=== PATIENT | female | born 1975 | race Caucasian/White ===

== ENCOUNTER 2018-04-11 23:38 | Inpatient (IN) | payer MEDICARE, OTHER ==
[~2018-04-11] VITALS: Ht 167.6 cm; Wt 92.9 kg
[2018-04-11 23:45] VITALS: BP 142/73; PULSE 90; RESP 16; TEMP 99.8; O2SAT 98
[2018-04-12] VITALS (18 sets, daily range): BP systolic 97–137; BP diastolic 56–76; PULSE 70–104; RESP 16–18; TEMP 98.6–99.1; O2SAT 94–97
[2018-04-12] MEDS ORDERED: SODIUM CHLOR 0.9% 1000 ML INJ 1,000 ML IV ONE (00:30)
--- NOTE | 2018-04-12 00:35 | PD ---
HPI Chief Complaint: Skin Problem Time Seen by Provider: 00:22 Travel History International Travel<30 days: No Contact w/Intl Traveler<30days: No Traveled to known affect area: No History of Present Illness HPI The patient is a 42 year old female who presents to the [facility] emergency department with a history of right leg swelling, pain, discharge that began yesterday. 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 She reports that it began with a crack on her skin from her prosthetic device rubbing a month ago. She was started on prophylactic clindamycin and has been taking this for the last week. She reports that she recently moved to the area from [place] 2 weeks ago and has not established with a primary care physician. The patient has a history of diabetes mellitus. The patient reports that she has not been able to check her blood sugar for the last 2 weeks as she cannot find her Accu- Chek machine. She has been taking her insulin intermittently. She last administered Lantus insulin in the morning today, 24 units, and NovoLog insulin 12 units. She normally would take 12 units of NovoLog 3 times per day if she is eating. She reports that she did not administer it later in the day as she was not eating. The patient reports that she began to have chest pain this evening. She reports having associated shortness of breath. She denies any prior history of myocardial infarction, DVT, or PE. She reports that the chest pain is in the center of her chest and comes and goes. She denies having any nausea, vomiting, or diarrhea. She reports that she last moved her bowels earlier today. She denies having any blood in her stool or black or tarry stools. She reports having a fever with a T-max of 99.8. She reports having associated chills. Otherwise on review of systems, she denies having any cough or congestion, neck pain, abdominal pain, dysuria, urinary urgency, or neurologic symptoms. The patient reports that she has been experiencing urinary frequency and increased thirst. REPLACED BY [facility] Past Medical History Narrative Medical The patient's past medical history is significant for diabetes mellitus, Charcot ankle on the left, history of COPD, hypertension, hyperlipidemia, and anemia. Anemia: Yes Asthma: Yes Cardiovascular Problems: Yes (HTN) Chest Pain: Yes COPD: Yes Diabetes: Yes (Insulin) Patient Takes Glucophage: No Genitourinary: Yes (leaking protein) Hypertension: Yes Respiratory: Yes (COPD) Immunizations Current: Yes Tetanus Vaccination: < 5 Years Influenza Vaccination: Yes ?: Not LMP: 03/28/18 : 3 Para: 2 Miscarriage: 1 Dilation and Curettage (D&C): Yes Tubal Ligation: Yes Past Surgical History Narrative Surgical The patient's past surgical history is significant for a right below the knee amputation, gastric bypass, bilateral tubal ligation, eye surgery Abdominal Surgery: Yes (Gastric Bypass 2014) Section: Yes (x1) Eye Surgery: Yes (laser surgery for bleeding and scar tissue removal ) Social History Alcohol Use: No Tobacco Use: No Substance Use: No Allergies-Medications (Allergen,Severity, Reaction): Coded Allergies: hydrocodone (Verified Allergy, Severe, 04/11/18) vancomycin (Verified Allergy, Severe, Hives, 04/12/18) per pt she is able to take vancomycin if she is premedicated with benadryl Reported Meds & Prescriptions Reported Meds & Active Scripts Active Reported Novolog Inj (Insulin Aspart) 1,000 Unit/10 Ml Vial 12 Units SQ AC DINNER Novolog Inj (Insulin Aspart) 1,000 Unit/10 Ml Vial 12 Units SQ AC BREAKFAST Novolog Inj (Insulin Aspart) 1,000 Unit/10 Ml Vial 8 Units SQ AC LUNCH Lantus Solostar Pen Inj (Insulin Glargine) 300 Unit/3 Ml Pen 24 Units SQ AC BREAKFAST [employer] Pen [place] 31GX1/ 31G X 6 mm (Insulin Pen Needle) 31 Gauge X 1/4" Mis Atorvastatin (Atorvastatin Calcium) 80 Mg Tab 80 Mg PO DAILY Amlodipine (Amlodipine Besylate) 10 Mg Tab 10 Mg PO DAILY Lisinopril 5 Mg Tab 1 Tab PO DAILY Review of Systems Except as stated in HPI: all other systems reviewed are Neg General / Constitutional: Positive: Fever, Chills Eyes: No: Visual changes HENT: No: Headaches, Rhinorrhea, Congestion Cardiovascular: Positive: Chest Pain or Discomfort, Dyspnea on exertion Respiratory: No: Cough, Shortness of Breath Gastrointestinal: No: Nausea, Vomiting, Diarrhea, Abdominal Pain Genitourinary: No: Dysuria Musculoskeletal: Positive: Edema, Pain Skin: Positive Rash Neurologic: No: Weakness, Focal Abnormalities, Change in Mentation, Slurred Speech, Sensory Disturbance Psychiatric: No: Depression Endocrine: Positive: Polyuria, Polydipsia Hematologic/Lymphatic: No: Easy Bruising Physical Exam Narrative General: The patient is a well-developed well-nourished female in no acute distress. Head and Neck exam: Head is normocephalic atraumatic. Eyes: EOMI, pupils are equal round and reactive to light. Nose: Midline septum with pink mucous membranes Mouth: Dentition unremarkable. Moist mucus membranes. Posterior oropharynx is not erythematous. No tonsillar hypertrophy. Uvula midline. Airway patent. Neck: No palpable lymphadenopathy. No nuchal rigidity. No thyromegaly. Cardiovascular: Regular rate and rhythm without murmurs, gallops, or rubs. No pulse deficit to the extremities. Lungs: Clear to auscultation bilaterally. No wheezes, rhonchi, or rales. Abdomen: Soft, without tenderness to palpation in all 4 quadrants of the abdomen. No guarding, rebound, or rigidity. Normal bowel sounds are audible. No tenderness on palpation of McBurney's point. Negative Wei sign. Extremities: No clubbing, cyanosis, or edema. 2+ pulses in all 3 extremities. The patient has a right below the knee amputation. Along the stump the patient is noted to have erythema and edema covering the entire stump. The anterior aspect of the area of erythema is more swollen with an area of fluctuance noted. There is drainage from the wound that is a purulent bloody drainage. Wound culture was collected and will be sent to lab. Back: No spinous process tenderness to palpation. No costovertebral angle tenderness to palpation. Neurologic Exam: Cranial nerves 2-12 were intact on exam. Strength is 5/5 in all 4 extremities. No sensory deficits noted. Skin Exam: No other rash noted. Intact skin that is warm and dry. Data Data Last Documented VS Vital Signs Date Time Temp Pulse Resp B/P (MAP) Pulse Ox O2 Delivery O2 Flow Rate FiO2 04/12/18 01:30 98.7 70 16 115/65 (82) 97 Room Air Orders Orders Electrocardiogram (04/12/18 00:22) Complete Blood Count With Diff (04/12/18 00:22) Comprehensive Metabolic Panel (04/12/18 00:22) Creatine Kinase (Cpk) (04/12/18 00:22) Ckmb (Isoenzyme) Profile (04/12/18) Troponin I (04/12/18) B-Type Natriuretic Peptide (04/12/18) Prothrombin Time / Inr (Pt) (04/12/18) Act Partial Throm Time (Ptt) (04/12/18) Blood Culture (04/12/18) C-Reactive Protein (Crp) (04/12/18) Lipase (04/12/18) Urinalysis - C+S If Indicated (04/12/18) Westergren Sedimentation Rate (04/12/18) Magnesium (Mg) (04/12/18) Blood Gas Venous Ph (04/12/18) Beta Hydroxybutyrate (Acetone) (04/12/18) Chest, Single Ap (04/12/18) Iv Access Insert/Monitor (04/12/18) Ecg Monitoring (04/12/18) Oximetry (04/12/18) Ed Urine Pregnancytest Poc (04/12/18) Lactic Acid Sepsis Protocol (04/12/18) Sodium Chlor 0.9% 1000 Ml Inj (Ns 1000 M (04/12/18 00:30) Knee, Complete (4vws) (04/12/18 00:23) Acetaminophen (Tylenol) (04/12/18 01:30) Piperacil-Tazo 3.375 Gm Premix (Zosyn 3. (04/12/18:30) Sulfamet-Trimeth Ds 800-160 Mg (Bactrim (04/12/18:30) Admit Order (Ed Use Only) (04/12/18 02:20) Labs Laboratory Tests Test 04/12/18 01:00 White Blood Count 15.8 TH/MM3 Red Blood Count 4.22 MIL/MM3 Hemoglobin 11.1 GM/DL Hematocrit 34.0 % Mean Corpuscular Volume 80.7 FL Mean Corpuscular Hemoglobin 26.4 PG Mean Corpuscular Hemoglobin Concent 32.7 % Red Cell Distribution Width 13.9 % Platelet Count 486 TH/MM3 Mean Platelet Volume 8.8 FL Neutrophils (%) (Auto) 79.4 % Lymphocytes (%) (Auto) 9.3 % Monocytes (%) (Auto) 7.4 % Eosinophils (%) (Auto) 3.2 % Basophils (%) (Auto) 0.7 % Neutrophils # (Auto) 12.6 TH/MM3 Lymphocytes # (Auto) 1.5 TH/MM3 Monocytes # (Auto) 1.2 TH/MM3 Eosinophils # (Auto) 0.5 TH/MM3 Basophils # (Auto) 0.1 TH/MM3 CBC Comment DIFF FINAL Differential Comment Erythrocyte Sedimentation Rate GREATER THAN 140 mm/hr Prothrombin Time 9.7 SEC Prothromb Time International Ratio 1.0 RATIO Activated Partial Thromboplast Time 27.3 SEC Venous Blood pH 7.39 Blood Urea Nitrogen 13 MG/DL Creatinine 1.23 MG/DL Random Glucose 193 MG/DL Total Protein 7.2 GM/DL Albumin 2.1 GM/DL Calcium Level 8.2 MG/DL Magnesium Level 1.9 MG/DL Alkaline Phosphatase 168 U/L Aspartate Amino Transf (AST/SGOT) 13 U/L Alanine Aminotransferase (ALT/SGPT) 13 U/L Total Bilirubin 0.2 MG/DL Sodium Level 139 MEQ/L Potassium Level 3.9 MEQ/L Chloride Level 108 MEQ/L Carbon Dioxide Level 20.5 MEQ/L Anion Gap 11 MEQ/L Estimat Glomerular Filtration Rate 48 ML/MIN Lactic Acid Level 1.0 mmol/L Total Creatine Kinase 88 U/L Troponin I LESS THAN 0.02 NG/ML C-Reactive Protein 10.70 MG/DL B-Type Natriuretic Peptide 53 PG/ML Lipase 107 U/L B-Hydroxybutyrate 0.18 MMOL/L MDM Medical Decision Making Medical Screen Exam Complete: Yes Emergency Medical Condition: Yes Medical Record Reviewed: Yes Differential Diagnosis Cellulitis, versus cellulitis with abscess, versus osteomyelitis, versus sepsis Narrative Course During the course of the patient's emergency department visit, the patient's history, examination, and differential diagnosis were reviewed with the patient. The patient was placed on a cardiac nurse practitioner with oximetry and frequent blood pressure monitoring. The patient had IV access obtained and blood work sent for analysis. The patient had an EKG done on arrival that shows sinus rhythm heart rate of 81. No acute ST segment elevation, T waves are inverted in lead III. The patient was initially provided Tylenol for pain, Zosyn 3.375 g IV, Bactrim DS 1 p.o. 1 given her vancomycin allergy and a concern for MRSA. The patient was started on normal saline 1 L IV fluid bolus. The patient's laboratory studies were reviewed and remarkable for white count of 15.8, hemoglobin 11.1, platelets 486 with 79.4 neutrophils, sedimentation rate is elevated at greater than 140, VBG shows a normal pH, CMP is remarkable for chloride of 108, CO2 20.5, creatinine 1.23, glucose 193, calcium 8.2, AST 13 , alk phos 168. Initial set of cardiac enzymes are within normal limits, C- reactive protein is elevated at 10.7, lipase 107, BMP within normal limits at 53 , lactic acid within normal limits at 1. PT 9.7, PTT 27.3, beta hydroxybutyrate is 0.18 ruling out DKA, urinalysis shows small occult blood, greater than 500 protein, greater than 500 glucose, small leukocyte Estrace, 75 WBCs, moderate clumps, many bacteria, culture indicated. Radiology studies were reviewed and remarkable for Last Impressions Knee X-Ray 04/12/1822 Signed Impressions: CONCLUSION: Status post micje-gbj-wekw amputation without evidence of active bone loss or o bvious infection Chest X-Ray 04/12/1821 Signed Impressions: CONCLUSION: Negative examination. The patient's results were discussed with the patient, including the plan of care. I explained that further testing and/ or monitoring is indicated based on the patient's history, examination, and/ or laboratory findings. Therefore, I recommended admission for additional evaluation. The patient expressed understanding and was agreeable with this plan. The patient was admitted to the hospital in guarded condition and [facility]. Sepsis Criteria SIRS Criteria (2 or more): WBC > 85420, < 4000 or > 10% bands Physician Communication Physician Communication The patient's case including history, pertinent physical examination findings, and laboratory studies were discussed with Dr. Chamberlain. [facility] was [facility] Diagnosis Primary Impression: Amputation stump infection Additional Impression: UTI (urinary tract infection) Qualified Codes: N39.0 - Urinary tract infection, site not specified; R31.9 - Hematuria, unspecified Admitting Information Admitting Physician Requests: Admit Anne Marie Emanuel MD Apr 12, 2018 00:35
--- NOTE | 2018-04-12 01:19 | RADRPT ---
EXAM DATE: 04/12/2018 12:49 AM EDT AGE/SEX: 42 years / Female INDICATIONS: Short of breath, cough. CLINICAL DATA: This is the patient's initial encounter. Patient reports that signs and symptoms have been present for 1 day and indicates a pain score of 0/10. MEDICAL/SURGICAL HISTORY: . Diabetes. . lower right leg amputation. COMPARISON: No prior exams available for comparison. FINDINGS: A single AP view of the chest demonstrates the lungs to be symmetrically aerated without evidence of mass, infiltrate or effusion. The cardiomediastinal contours are unremarkable. Osseous structures a re intact. CONCLUSION: Negative examination. Electronically signed by: Rick Lebron MD 04/12/2018 1:18 AM EDT
--- NOTE | 2018-04-12 01:20 | RADRPT ---
EXAM DATE: 04/12/2018 12:50 AM EDT AGE/SEX: 42 years / Female INDICATIONS: Possible infection of lower right leg. CLINICAL DATA: This is the patient's initial encounter. Patient reports that signs and symptoms have been present for 1 day and indicates a pain score of 5/10. MEDICAL/SURGICAL HISTORY: . diabetes. . lower right leg amputation. COMPARISON: No prior exams available for comparison. FINDINGS: The patient's had a oyzxo-lwv-[id number] amputation. The residual tibia and fibula are unremarkable. No for eign objects identified. There is dense atherosclerotic disease. No active bone loss is identified. S oft tissues around the knee are unremarkable CONCLUSION: Status post nxxof-hrf-iirb amputation without evidence of active bone loss or obvious infection Electronically signed by: Rick Lebron MD 04/12/2018 1:19 AM EDT
[2018-04-12 01:29] LABS: AUTOMATED NEUTROPHIL # 12.6 TH/MM3 (1.8-7.7); BASOPHIL # 0.1 TH/MM3 (0-0.2); BASOPHIL % 0.7 % (0.0-2.0); EOSINOPHIL # 0.5 TH/MM3 (0-0.4); EOSINOPHIL % 3.2 % (0.0-4.0); HEMOGLOBIN 11.1 GM/DL (11.6-15.3); LYMPH % 9.3 % (9.0-44.0); LYMPHOCYTE # 1.5 TH/MM3 (1.0-4.8); MEAN CELL VOLUME 80.7 FL (80.0-100.0); MEAN CORPUSCULAR HEMOGLOBIN 26.4 PG (27.0-34.0); MEAN CORPUSCULAR HGB CONC 32.7 % (32.0-36.0); MEAN PLATELET VOLUME 8.8 FL (7.0-11.0); MONO % 7.4 % (0.0-8.0); MONOCYTE # 1.2 TH/MM3 (0-0.9); NEUT % 79.4 % (16.0-70.0); PLATELET COUNT 486 TH/MM3 (150-450); RED BLOOD COUNT 4.22 MIL/MM3 (4.00-5.30); RED CELL DISTRIBUTION WIDTH 13.9 % (11.6-17.2); WHITE BLOOD COUNT 15.8 TH/MM3 (4.0-11.0)
[2018-04-12] MEDS ORDERED: ACETAMINOPHEN 325 MG TAB PO ONE (01:30)
[2018-04-12] MEDS ORDERED: PIPERACIL-TAZO 3.375 GM PREMIX 50 ML IV ONE (01:30)
[2018-04-12] MEDS ORDERED: SULFAMETHOXAZOLE-TRIMETHOPRIM DS 800-160 MG TAB PO ONE (01:30)
[2018-04-12 01:49] LABS: ALBUMIN 2.1 GM/DL (3.4-5.0); ALKALINE PHOSPHATASE 168 U/L (45-117); ALT (GPT) 13 U/L (10-53); AST (GOT) 13 U/L (15-37); BICARBONATE 20.5 MEQ/L (21.0-32.0); BLOOD UREA NITROGEN 13 MG/DL (7-18); CALCIUM 8.2 MG/DL (8.5-10.1); CHLORIDE 108 MEQ/L (98-107); CREATININE 1.23 MG/DL (0.50-1.00); GLOMERULAR FILTRATION RATE 48 ML/MIN (>89); GLUCOSE,RANDOM 193 MG/DL (74-106); MAGNESIUM 1.9 MG/DL (1.5-2.5); SODIUM (NA) 139 MEQ/L (136-145); TOTAL BILIRUBIN ADULT 0.2 MG/DL (0.2-1.0); TOTAL PROTEIN 7.2 GM/DL (6.4-8.2); TROPONIN I LESS THAN 0.02 NG/ML (0.02-0.05)
[2018-04-12 01:50] LABS: PROTHROMBIN TIME - PATIENT 9.7 SEC (9.8-11.6)
[2018-04-12] MEDS ORDERED: LANTINJ SQ (02:40)
[2018-04-12] MEDS ORDERED: ATOR80TA45 PO (02:40)
[2018-04-12] MEDS ORDERED: [UNRECOGNIZED DRUG - CODE] (02:40)
[2018-04-12] MEDS ORDERED: LISI-519 PO (02:40)
[2018-04-12] MEDS ORDERED: NOVOLOGP2 SQ ×3 (02:40)
[2018-04-12] MEDS ORDERED: AMLO10TA2 PO (02:40)
--- NOTE | 2018-04-12 03:13 | HHI.HP ---
HPI Service [facility] Primary Care Physician Unknown Admission Diagnosis Right stump infection, cp r/o acs Diagnoses: Travel History International Travel<30 Days: No Contact w/Intl Traveler <30 Da: No Traveled to Known Affected Are: No History of Present Illness 42-year-old female with a past medical history significant for diabetes mellitus , hypertension, hyperlipidemia and COPD presents the emergency department with a 2 day history of a painful, swollen red and draining right stump. The patient is status post BKA and wears a prosthetic. She reports a crack in the rubber on her prosthetic that rubbed a hole in her skin. She saw her PCP approximately 10 days ago who gave her a prescription for clindamycin but stated that it was not infected at that time. The patient reports compliance with the clindamycin. She denies any fever/chills. Additionally, the patient complains of chest pain that started this evening. She endorses an associated shortness of breath. She states that the chest pain is substernal and intermittent. She denies any abdominal pain. No nausea/vomiting/diarrhea. No lateralizing signs/symptoms. Review of Systems Except as stated in HPI: all other systems reviewed are Neg Past Family Social History Past Medical History diabetes mellitus, hypertension, hyperlipidemia and COPD Past Surgical History Right BKA Gastric bypass Reported Medications Reported Meds & Active Scripts Active Reported Novolog Inj (Insulin Aspart) 1,000 Unit/10 Ml Vial 12 Units SQ AC DINNER Novolog Inj (Insulin Aspart) 1,000 Unit/10 Ml Vial 12 Units SQ AC BREAKFAST Novolog Inj (Insulin Aspart) 1,000 Unit/10 Ml Vial 8 Units SQ AC LUNCH Lantus Solostar Pen Inj (Insulin Glargine) 300 Unit/3 Ml Pen 24 Units SQ AC BREAKFAST [employer] Pen [place] 31GX1/ 31G X 6 mm (Insulin Pen Needle) 31 Gauge X 1/4" Mis Atorvastatin (Atorvastatin Calcium) 80 Mg Tab 80 Mg PO DAILY Amlodipine (Amlodipine Besylate) 10 Mg Tab 10 Mg PO DAILY Lisinopril 5 Mg Tab 1 Tab PO DAILY Allergies: Coded Allergies: hydrocodone (Verified Allergy, Severe, 04/11/18) vancomycin (Verified Allergy, Severe, Hives, 04/11/18) Family History Both parents with diabetes mellitus Social History Negative for alcohol, tobacco and illicit drugs Physical Exam Vital Signs Vital Signs Date Time Temp Pulse Resp B/P (MAP) Pulse Ox O2 Delivery O2 Flow Rate FiO2 04/11/18 23:45 99.8 90 16 142/73 (96) 98 Physical Exam GENERAL: Female, lying in bed SKIN: Erythematous and edematous right stump. The anterior aspect of the stump has fluctuance and purulent, bloody drainage. HEAD: Atraumatic. Normocephalic. No temporal or scalp tenderness. EYES: Pupils equal round and reactive. Extraocular motions intact. No scleral icterus. No injection or drainage. ENT: Nose without bleeding, purulent drainage or septal hematoma. Throat without erythema, tonsillar hypertrophy or exudate. Uvula midline. Airway patent. NECK: Trachea midline. No JVD or lymphadenopathy. Supple, nontender, no meningeal signs. CARDIOVASCULAR: Regular rate and rhythm without murmurs, gallops, or rubs. RESPIRATORY: Clear to auscultation. Breath sounds equal bilaterally. No wheezes , rales, or rhonchi. GASTROINTESTINAL: Abdomen soft, non-tender, nondistended. No hepato-splenomegaly , or palpable masses. No guarding. MUSCULOSKELETAL: Extremities without clubbing, cyanosis, or edema. No joint tenderness, effusion, or edema noted. No calf tenderness. NEUROLOGICAL: Awake and alert. Cranial nerves II through XII intact. Motor and sensory grossly within normal limits. Normal speech. Laboratory Laboratory Tests Test 04/12/18 01:00 04/12/18 02:30 White Blood Count 15.8 Red Blood Count 4.22 Hemoglobin 11.1 Hematocrit 34.0 Mean Corpuscular Volume 80.7 Mean Corpuscular Hemoglobin 26.4 Mean Corpuscular Hemoglobin Concent 32.7 Red Cell Distribution Width 13.9 Platelet Count 486 Mean Platelet Volume 8.8 Neutrophils (%) (Auto) 79.4 Lymphocytes (%) (Auto) 9.3 Monocytes (%) (Auto) 7.4 Eosinophils (%) (Auto) 3.2 Basophils (%) (Auto) 0.7 Neutrophils # (Auto) 12.6 Lymphocytes # (Auto) 1.5 Monocytes # (Auto) 1.2 Eosinophils # (Auto) 0.5 Basophils # (Auto) 0.1 CBC Comment DIFF FINAL Differential Comment Erythrocyte Sedimentation Rate GREATER THAN 140 Prothrombin Time 9.7 Prothromb Time International Ratio 1.0 Activated Partial Thromboplast Time 27.3 Venous Blood pH 7.39 Blood Urea Nitrogen 13 Creatinine 1.23 Random Glucose 193 Total Protein 7.2 Albumin 2.1 Calcium Level 8.2 Magnesium Level 1.9 Alkaline Phosphatase 168 Aspartate Amino Transf (AST/SGOT) 13 Alanine Aminotransferase (ALT/SGPT) 13 Total Bilirubin 0.2 Sodium Level 139 Potassium Level 3.9 Chloride Level 108 Carbon Dioxide Level 20.5 Anion Gap 11 Estimat Glomerular Filtration Rate 48 Lactic Acid Level 1.0 Total Creatine Kinase 88 Troponin I LESS THAN 0.02 C-Reactive Protein 10.70 B-Type Natriuretic Peptide 53 Lipase 107 B-Hydroxybutyrate 0.18 Date/Time Source Procedure Growth Status 04/12/18 01:10 Blood Peripheral Aerobic Blood Culture Pending Received 04/12/18 01:10 Blood Peripheral Anaerobic Blood Culture Pending Received 04/12/18 01:00 Wound Leg Gram Stain Pending Received 04/12/18 01:00 Wound Leg Wound Culture Pending Received Result Diagram: 04/12/18 01004/12/18 0100 Caprini VTE Risk Assessment Caprini VTE Risk Assessment: No/Low Risk (score <= 1) Caprini Risk Assessment Model Point Value = 1 Point Value = 2 Point Value = 3 Point Value = 5 Age 41-60 Minor surgery BMI > 25 kg/m2 Swollen legs Varicose veins or History of unexplained or recurrent spontaneous Oral contraceptives or hormone replacement Sepsis (< 1 month) Serious lung disease, including pneumonia (< 1 month) Abnormal pulmonary function Acute myocardial infarction Congestive heart failure (< 1 month) History of inflammatory bowel disease Medical patient at bed rest Age 61-74 Arthroscopic surgery Major open surgery (> 45 min) Laparoscopic surgery (> 45 min) Malignancy Confined to bed (> 72 hours) Immobilizing plaster cast Central venous access Age >= 75 History of VTE Family history of VTE Factor V Leiden Prothrombin [id number] Lupus anticoagulant Anticardiolipin antibodies Elevated serum homocysteine Heparin-induced thrombocytopenia Other congenital or acquired thrombophilia Stroke (< 1 month) Elective arthroplasty Hip, pelvis, or leg fracture Acute spinal cord injury (< 1 month) Prophylaxis Regimen Total Risk Factor Score Risk Level Prophylaxis Regimen 0-1 Low Early ambulation 2 Moderate Order ONE of the following: *Sequential Compression Device (SCD) *Heparin 5000 units SQ BID 3-4 Higher Order ONE of the following medications: *Heparin 5000 units SQ TID *Enoxaparin/Lovenox 40 mg SQ daily (WT < 150 kg, CrCl > 30 mL/min) *Enoxaparin/Lovenox 30 mg SQ daily (WT < 150 kg, CrCl > 10-29 mL/min) *Enoxaparin/Lovenox 30 mg SQ BID (WT < 150 kg, CrCl > 30 mL/min) AND/OR *Sequential Compression Device (SCD) 5 or more Highest Order ONE of the following medications: *Heparin 5000 units SQ TID (Preferred with Epidurals) *Enoxaparin/Lovenox 40 mg SQ daily (WT < 150 kg, CrCl > 30 mL/min) *Enoxaparin/Lovenox 30 mg SQ daily (WT < 150 kg, CrCl > 10-29 mL/min) *Enoxaparin/Lovenox 30 mg SQ BID (WT < 150 kg, CrCl > 30 mL/min) AND *Sequential Compression Device (SCD) Assessment and Plan Assessment and Plan Assessment/plan: 1. Cellulitis/ ? Osteomyelitis Vancomycin/Zosyn Wound cultures pending Blood cultures pending ESR elevated, MRI pending Infectious disease consulted, appreciate recommendations 2. Diabetes mellitus Holding long-acting insulin as patient n.p.o. Sliding-scale insulin Monitor blood glucose 3. Hypertension/hyperlipidemia Continue home medications FEN N.p.o. NS at 100 cc/hour Electrolytes: Monitor and replete as needed Physician Certification 2 Midnight Certification Type: Admission for Inpatient Services Order for Inpatient Services The services are ordered in accordance with Medicare regulations or non- Medicare payer requirements, as applicable. In the case of services not specified as inpatient-only, they are appropriately provided as inpatient services in accordance with the 2-midnight benchmark. Estimated LOS (days): 2 2 days is the estimated time the patient will need to remain in the hospital, assuming treatment plan goals are met and no additional complications. Post-Hospital Plan: Not yet determined Lorraine Chamberlain MD Apr 12, 2018 03:13
[2018-04-12 03:14] LABS: BACTERIA, URINE MANY /hpf; BILIRUBIN, URINE NEG (NEG); BLOOD, URINE SMALL (NEG); GLUCOSE,URINE >=500 mg/dL (NEG); HYALINE CAST, URINE 7 /lpf (RARE); KETONE, URINE NEG (NEG); NITRITE,URINE NEG (NEG); SQUAMOUS EPITHELIAL CELL URINE 4 /hpf (0-5); URINE COLOR YELLOW (YELLW/STRAW); URINE LEUKOCYTE ESTERASE SMALL (NEG); WHITE BLOOD CELL CLUMPS MOD
[2018-04-12] MEDS ORDERED: GLUCAGON 1 MG/ML VIAL OTHER PRN (03:15)
[2018-04-12] MEDS ORDERED: BISACODYL 10 MG SUPP RECTAL PRN (03:15)
[2018-04-12] MEDS ORDERED: SENNOSIDES 8.6 MG TAB PO PRN (03:15)
[2018-04-12] MEDS ORDERED: Vancomycin Consult Pharmacy 1 EA OTHER SCH (03:15)
[2018-04-12] MEDS ORDERED: MAGNESIUM HYDROXIDE SUSP 30 ML CUP PO PRN (03:15)
[2018-04-12] MEDS ORDERED: LACTULOSE SYRUP 20 GM/30 ML CUP PO PRN (03:15)
[2018-04-12] MEDS ORDERED: DEXTROSE 50% IN WATER 50 ML VIAL(D50) IV PUSH PRN (03:15)
[2018-04-12] MEDS ORDERED: NALOXONE HCL 0.4 MG/ML AMP IV PUSH PRN (03:15)
[2018-04-12] MEDS ORDERED: diphenhydrAMINE HCL 50 MG/ML VIAL IV PUSH PRN (03:15)
[2018-04-12] MEDS: SODIUM CHLOR 0.9% 1000 ML INJ 1,000 ML IV SCH ×2 (04:31→11:31)
[2018-04-12] MEDS: diphenhydrAMINE HCL 50 MG/ML VIAL IV PUSH SCH ×2 (04:33→15:31)
[2018-04-12] MEDS: SODIUM CHLORIDE 0.9% FLUSH 10 ML FLUSH IV FLUSH PRN (04:33)
[2018-04-12] MEDS: VANCOMYCIN INJ 1,500 MG in SODIUM CHLORID 0.9% 500 ML INJ 500 ML IV SCH ×2 (04:33→15:31)
[2018-04-12] MEDS: ONDANSETRON ODT 4 MG TAB PO PRN (04:33)
[2018-04-12] MEDS: MORPHINE SULFATE 4 MG/ML INJ IV PRN ×3 (04:34→13:01)
[2018-04-12] MEDS: INSULIN ASPART SUPPLEMENTAL SCALE SQ SCH ×4 (08:00→21:00)
[2018-04-12] MEDS: PIPERACIL-TAZO 3.375 GM PREMIX 50 ML IV SCH ×3 (08:39→20:49)
[2018-04-12] MEDS: ATORVASTATIN 80 MG TAB PO SCH (08:39)
[2018-04-12] MEDS: LISINOPRIL 5 MG TAB PO SCH (08:39)
[2018-04-12] MEDS: DOCUSATE SODIUM 50 MG/SENNA 8.6 MG TAB PO SCH ×2 (08:39→20:52)
[2018-04-12] MEDS: SODIUM CHLORIDE 0.9% FLUSH 10 ML FLUSH IV FLUSH SCH ×2 (08:39→20:52)
[2018-04-12 09:21] LABS: TROPONIN I LESS THAN 0.02 NG/ML (0.02-0.05)
--- NOTE | 2018-04-12 10:45 | PD.ID.CON ---
History of Present Illness Service ID Consult Requested By Reason for Consult Evaluation and Mment of Right BKA stump infection possible osteomyelitis of stump. Primary Care Physician Unknown Diagnoses: History of Present Illness is a 42 y/o CF with PMHx of DM with neuropathy, Charcots joint of Left foot. She reports prior h/o toe and leg infection needing IV antibiotics and progressing despite that needing Right BKA. She reports she is from [facility] and had surgeries locally in [place]. She also reports h/o hypertension, hyperlipidemia and COPD presents the emergency department with a 2 day history of a painful, swollen red and draining right stump. The patient is status post BKA and wears a prosthetic. She reports a crack in the rubber on her prosthetic that rubbed a hole in her skin. She saw her PCP approximately 10 days ago who gave her a prescription for clindamycin but stated that it was not infected at that time. The patient reports compliance with the clindamycin. She denies any fever/chills. She reports approx 3 days prior to admission she started having increasing redness and swelling at amputation stump site. She decided to present to the hospital. ID consulted for stump site cellulitis. Review of Systems ROS Limitations: Poor Historian Constitutional: DENIES: Diaphoretic episodes, Fatigue, Fever, Weight gain, Weight loss, Chills, Dizziness, Change in appetite, Night Sweats Endocrine: DENIES: Abnorml menstrual pattern, Heat/cold intolerance, Polydipsia , Polyuria, Polyphagia Eyes: DENIES: Blurred vision, Diplopia, Eye inflammation, Eye pain, Vision loss , Photosensitivity, Double Vision Ears, nose, mouth, throat: DENIES: Tinnitus, Hearing loss, Vertigo, Nasal discharge, Oral lesions, Throat pain, Hoarseness, Ear Pain, Running Nose, Epistaxis, Sinus Pain, Toothache, Odynophagia Respiratory: DENIES: Apneas, Cough, Snoring, Wheezing, Hemoptysis, Sputum production, Shortness of breath Cardiovascular: DENIES: Chest pain, Palpitations, Syncope, Dyspnea on Exertion , PND, Lower Extremity Edema, Orthopnea, Claudication Gastrointestinal: DENIES: Abdominal pain, Black stools, Bloody stools, Constipation, Diarrhea, Nausea, Vomiting, Difficulty Swallowing, Anorexia Genitourinary: DENIES: Abnormal vaginal bleeding, Dysmenorrhea, Dyspareunia, Sexual dysfunction, Urinary frequency, Urinary incontinence, Urgency, Hematuria , Dysuria, Nocturia, Vaginal discharge Musculoskeletal: DENIES: Joint pain, Muscle aches, Stiffness, Joint Swelling, Back pain, Neck pain Integumentary: COMPLAINS OF: Abnormal pigmentation, DENIES: Pruritus, Rash, Nail changes, Breast masses, Breast skin changes, Nipple discharge Hematologic/lymphatic: DENIES: Bruising, Lymphadenopathy Immunologic/allergic: DENIES: Eczema, Urticaria Neurologic: DENIES: Abnormal gait, Headache, Localized weakness, Paresthesias, Seizures, Speech Problems, Tremor, Poor Balance Psychiatric: DENIES: Anxiety, Confusion, Mood changes, Depression, Hallucinations, Agitation, Suicidal Ideation, Homicidal Ideation, Delusions Except as stated in HPI: all other systems reviewed are Neg Past Family Social History Allergies: Coded Allergies: hydrocodone (Verified Allergy, Severe, 04/11/18) vancomycin (Verified Allergy, Severe, Hives, 04/12/18) per pt she is able to take vancomycin if she is premedicated with benadryl Past Medical History Diabetes mellitus, hypertension, hyperlipidemia COPD Past Surgical History Right BKA Gastric bypass Reported Medications Reported Meds & Active Scripts Active Reported Novolog Inj (Insulin Aspart) 1,000 Unit/10 Ml Vial 12 Units SQ AC DINNER Novolog Inj (Insulin Aspart) 1,000 Unit/10 Ml Vial 12 Units SQ AC BREAKFAST Novolog Inj (Insulin Aspart) 1,000 Unit/10 Ml Vial 8 Units SQ AC LUNCH Lantus Solostar Pen Inj (Insulin Glargine) 300 Unit/3 Ml Pen 24 Units SQ AC BREAKFAST [employer] Pen [place] 31GX1/ 31G X 6 mm (Insulin Pen Needle) 31 Gauge X 1/4" Mis Atorvastatin (Atorvastatin Calcium) 80 Mg Tab 80 Mg PO DAILY Amlodipine (Amlodipine Besylate) 10 Mg Tab 10 Mg PO DAILY Lisinopril 5 Mg Tab 1 Tab PO DAILY Active Ordered Medications Current Medications Medications (Trade) Dose Ordered Sig/Maria D Route Start Time Stop Time Status Last Admin Piperacillin Sod/ Tazobactam Sod 50 ml @ 100 mls/hr Q6H IV 04/12/18 08:00 04/12/18 08:39 Pharmacy Profile Note 0 ml @ 0 mls/hr UNSCH OTHER 04/12/18 03:15 Vancomycin HCl 1500 mg/Sodium Chloride 500 ml @ 250 mls/hr Q12H IV 04/12/18 04:00 04/12/18 04:33 (Morphine Inj) 2 mg Q4H PRN IV 04/12/18 03:30 04/12/18 08:53 Sodium Chloride 1,000 ml @ 100 mls/hr Q10H IV 04/12/18 03:02 04/12/18 04:31 (NS Flush) 2 ml UNSCH PRN IV FLUSH 04/12/18 03:15 04/12/18 04:33 (NS Flush) 2 ml BID IV FLUSH 04/12/18 09:00 (Tylenol) 650 mg Q4H PRN PO 04/12/18 03:15 (Zofran Odt) 4 mg Q6H PRN PO 04/12/18 03:30 04/12/18 04:33 (Narcan Inj) 0.4 mg UNSCH PRN IV PUSH 04/12/18 03:15 (Dilcia-Colace) 1 tab BID PO 04/12/18 09:00 04/12/18 08:39 (Milk Of Magnesia Liq) 30 ml Q12H PRN PO 04/12/18 03:15 (Senokot) 17.2 mg Q12H PRN PO 04/12/18 03:15 (Dulcolax Supp) 10 mg DAILY PRN RECTAL 04/12/18 03:15 (Lactulose Liq) 30 ml DAILY PRN PO 04/12/18 03:15 (D50w (Vial) Inj) 50 ml UNSCH PRN IV PUSH 04/12/18 03:15 (Glucagon Inj) 1 mg UNSCH PRN OTHER 04/12/18 03:15 (NovoLOG SUPPLEMENTAL SCALE) 1 ACHS SLIDING SCALE SQ 04/12/18 08:00 (Norvasc) 10 mg DAILY PO 04/12/18 09:00 04/12/18 08:39 (Lipitor) 80 mg DAILY PO 04/12/18 09:00 04/12/18 08:39 (Prinivil) 5 mg DAILY PO 04/12/18 09:00 04/12/18 08:39 ([facility] Ordered Lab Info) SPECIFIC LAB TO BE AJAY... ONCE ONCE .XX 04/14/18 03:45 04/14/18 03:46 (Benadryl Inj) 25 mg Q12H IV PUSH 04/12/18 04:00 04/12/18 04:33 Family History Both parents with diabetes mellitus Social History Negative for alcohol, tobacco and illicit drugs. Has 2 minor children in room. 2 other 16 yr old kids with in the area. Physical Exam Vital Signs Vital Signs Date Time Temp Pulse Resp B/P (MAP) Pulse Ox O2 Delivery O2 Flow Rate FiO2 04/12/18 08:59 16 04/12/18 08:00 99.1 79 16 132/76 (94) 95 04/12/18 08:00 76 04/12/18 05:20 98.9 80 16 137/74 (95) 97 04/12/18 04:35 72 16 111/64 (80) 98 04/12/18 01:30 98.7 70 16 115/65 (82) 97 Room Air 04/11/18 23:45 99.8 90 16 142/73 (96) 98 Physical Exam GENERAL: Obese, well-developed patient, in no apparent distress. SKIN: No rashes, ecchymoses or lesions. Cool and dry. HEAD: Atraumatic. Normocephalic. No temporal or scalp tenderness. EYES: Pupils equal round and reactive. Extraocular motions intact. No scleral icterus. No injection or drainage. ENT: Nose without bleeding, purulent drainage or septal hematoma. Throat without erythema, tonsillar hypertrophy or exudate. Uvula midline. Airway patent. NECK: Trachea midline. Supple, nontender, no meningeal signs. CARDIOVASCULAR: RHS audible. RESPIRATORY: Clear to auscultation. Breath sounds equal bilaterally. No wheezes , rales, or rhonchi. GASTROINTESTINAL: Abdomen soft, non-tender, nondistended. MUSCULOSKELETAL: rt BKA stump site with significant erythema, swelling, induration and tenderness. Sanguinous discharge from the stump and sheets covered in discharge. Left foot with Charcot like changes. NEUROLOGICAL: Awake and alert. Non focal Psych cooperative IV line sites with no e.o infection Laboratory Laboratory Tests Test 04/12/18 01:00 04/12/18 02:30 04/12/18 08:43 White Blood Count 15.8 Red Blood Count 4.22 Hemoglobin 11.1 Hematocrit 34.0 Mean Corpuscular Volume 80.7 Mean Corpuscular Hemoglobin 26.4 Mean Corpuscular Hemoglobin Concent 32.7 Red Cell Distribution Width 13.9 Platelet Count 486 Mean Platelet Volume 8.8 Neutrophils (%) (Auto) 79.4 Lymphocytes (%) (Auto) 9.3 Monocytes (%) (Auto) 7.4 Eosinophils (%) (Auto) 3.2 Basophils (%) (Auto) 0.7 Neutrophils # (Auto) 12.6 Lymphocytes # (Auto) 1.5 Monocytes # (Auto) 1.2 Eosinophils # (Auto) 0.5 Basophils # (Auto) 0.1 CBC Comment DIFF FINAL Differential Comment Erythrocyte Sedimentation Rate GREATER THAN 140 Prothrombin Time 9.7 Prothromb Time International Ratio 1.0 Activated Partial Thromboplast Time 27.3 Venous Blood pH 7.39 Blood Urea Nitrogen 13 Creatinine 1.23 Random Glucose 193 Total Protein 7.2 Albumin 2.1 Calcium Level 8.2 Magnesium Level 1.9 Alkaline Phosphatase 168 Aspartate Amino Transf (AST/SGOT) 13 Alanine Aminotransferase (ALT/SGPT) 13 Total Bilirubin 0.2 Sodium Level 139 Potassium Level 3.9 Chloride Level 108 Carbon Dioxide Level 20.5 Anion Gap 11 Estimat Glomerular Filtration Rate 48 Lactic Acid Level 1.0 Total Creatine Kinase 88 56 Troponin I LESS THAN 0.02 LESS THAN 0.02 C-Reactive Protein 10.70 B-Type Natriuretic Peptide 53 Lipase 107 B-Hydroxybutyrate 0.18 Urine Color YELLOW Urine Turbidity CLOUDY Urine pH 5.0 Urine Specific [place] 1.011 Urine Protein >=500 Urine Glucose (UA) >=500 Urine Ketones NEG Urine Occult Blood SMALL Urine Nitrite NEG Urine Bilirubin NEG Urine Urobilinogen LESS THAN 2 Urine Leukocyte Esterase SMALL Urine RBC 2 Urine WBC 75 Urine WBC Clumps MOD Urine Squamous Epithelial Cells 4 Urine Bacteria MANY Urine Hyaline Casts 7 Microscopic Urinalysis Comment CULTURE INDICATED Date/Time Source Procedure Growth Status 04/12/18 01:10 Blood Peripheral Aerobic Blood Culture Pending Received 04/12/18 01:10 Blood Peripheral Anaerobic Blood Culture Pending Received 04/12/18 02:30 Urine Random Urine Urine Culture Pending Received 04/12/18 01:00 Wound Leg Gram Stain - Final Resulted 04/12/18 01:00 Wound Leg Wound Culture Pending Resulted Result Diagram: 04/12/18 0100 04/12/18 0100 Imaging Last Impressions Knee X-Ray 04/12/18 0023 Signed Impressions: CONCLUSION: Status post [id number] amputation without evidence of active bone loss or o bvious infection Chest X-Ray 04/12/18 0022 Signed Impressions: CONCLUSION: Negative examination. Assessment and Plan Assessment and Plan Right BKA amputation site infection with possible abscess, underlying osteomyelitis. DM with Neuropathy Left foot with Charcot changes. Acute renal failure: ? acute on chronic. Elevated CRP and ESR. Recs Has tolerated Vanco overnight. Continue Vanco IV for now. Target 15-20. Continue Zosyn IV dw : needs surgery consult possible vascular consult. Follow cultures. Follow clinically. Ivelisse Narayan MD Apr 12, 2018 10:45
--- NOTE | 2018-04-12 13:00 | PD.VS.CON ---
History of Present Illness Chief Complaint: RIGHT BKA infection Consult Requested by: Medical service History of Present Illness 42 yo female with history of DM and R BKA done about a year ago who was wearing a prosthesis and developed a wound infection. Had this very same thing happen a few months ago. No fevers. Past/Family/Social History Past Medical History DM HTN XOL ? COPD Past Surgical History R BKA without delayed healing gastric bypass Social History NC Family History NC Home Medications Reported Medications Insulin Aspart Inj (Novolog Inj) 1,000 Unit/10 Ml Vial, 12 UNITS SQ AC DINNER for Blood Sugar Management, #10 ML 0 Refills 04/12/18 Insulin Aspart Inj (Novolog Inj) 1,000 Unit/10 Ml Vial, 12 UNITS SQ AC BREAKFAST for Blood Sugar Management, #10 ML 0 Refills 04/12/18 Insulin Aspart Inj (Novolog Inj) 1,000 Unit/10 Ml Vial, 8 UNITS SQ AC LUNCH for Blood Sugar Management, #10 ML 0 Refills 04/12/18 Insulin Glargine Inj (Lantus Solostar Pen Inj) 300 Unit/3 Ml Pen, 24 UNITS SQ AC BREAKFAST 04/12/18 Insulin Pen Needle ([employer] Pen [place] 31GX1/ 31G X 6 mm) 31 Gauge X 1/4" Mis 04/12/18 Atorvastatin (Atorvastatin) 80 Mg Tab, 80 MG PO DAILY 04/12/18 Amlodipine (Amlodipine) 10 Mg Tab, 10 MG PO DAILY 04/12/18 Lisinopril (Lisinopril) 5 Mg Tab, 1 TAB PO DAILY 04/12/18 Coded Allergies: hydrocodone (Verified Allergy, Severe, 04/11/18) vancomycin (Verified Allergy, Severe, Hives, 04/12/18) per pt she is able to take vancomycin if she is premedicated with benadryl Review of Systems Constitutional: COMPLAINS OF: Fatigue Cardiovascular: DENIES: Chest pain, Palpitations, Syncope, Dyspnea on Exertion , PND, Lower Extremity Edema, Orthopnea, Claudication Physical Exam Vitals/I&O Date Time Temp Pulse Resp B/P (MAP) Pulse Ox O2 Delivery O2 Flow Rate FiO2 04/12/18 12:00 99.1 90 16 123/70 (87) 94 04/12/18 12:00 90 04/12/18 11:00 104 04/12/18 10:00 86 04/12/18 09:00 82 04/12/18 08:59 16 04/12/18 08:00 99.1 79 16 132/76 (94) 95 04/12/18 08:00 76 04/12/18 07:00 82 04/12/18 05:20 98.9 80 16 137/74 (95) 97 04/12/18 04:35 72 16 111/64 (80) 98 04/12/18 01:30 98.7 70 16 115/65 (82) 97 Room Air 04/11/18 23:45 99.8 90 16 142/73 (96) 98 04/12/18 04/12/18 04/12/18 07:00 15:00 23:00 Intake Total 1050 ml Balance 1050 ml Neuro: slightly somnolent but alert HEENT: NC/AT, anicteric sclera Neck: no JVD Heart: reg rate, no M Lungs: clear B Vascular: no palpable popliteal pulse Extremities: R BKA with open wound and myonecrosis, surrounding erythema Laboratory Tests Test 04/12/18 01:00 04/12/18 02:30 04/12/18 08:43 White Blood Count 15.8 Red Blood Count 4.22 Hemoglobin 11.1 Hematocrit 34.0 Mean Corpuscular Volume 80.7 Mean Corpuscular Hemoglobin 26.4 Mean Corpuscular Hemoglobin Concent 32.7 Red Cell Distribution Width 13.9 Platelet Count 486 Mean Platelet Volume 8.8 Neutrophils (%) (Auto) 79.4 Lymphocytes (%) (Auto) 9.3 Monocytes (%) (Auto) 7.4 Eosinophils (%) (Auto) 3.2 Basophils (%) (Auto) 0.7 Neutrophils # (Auto) 12.6 Lymphocytes # (Auto) 1.5 Monocytes # (Auto) 1.2 Eosinophils # (Auto) 0.5 Basophils # (Auto) 0.1 CBC Comment DIFF FINAL Differential Comment Erythrocyte Sedimentation Rate GREATER THAN 140 Prothrombin Time 9.7 Prothromb Time International Ratio 1.0 Activated Partial Thromboplast Time 27.3 Venous Blood pH 7.39 Blood Urea Nitrogen 13 Creatinine 1.23 Random Glucose 193 Total Protein 7.2 Albumin 2.1 Calcium Level 8.2 Magnesium Level 1.9 Alkaline Phosphatase 168 Aspartate Amino Transf (AST/SGOT) 13 Alanine Aminotransferase (ALT/SGPT) 13 Total Bilirubin 0.2 Sodium Level 139 Potassium Level 3.9 Chloride Level 108 Carbon Dioxide Level 20.5 Anion Gap 11 Estimat Glomerular Filtration Rate 48 Lactic Acid Level 1.0 Total Creatine Kinase 88 56 Troponin I LESS THAN 0.02 LESS THAN 0.02 C-Reactive Protein 10.70 B-Type Natriuretic Peptide 53 Lipase 107 B-Hydroxybutyrate 0.18 Urine Color YELLOW Urine Turbidity CLOUDY Urine pH 5.0 Urine Specific [place] 1.011 Urine Protein >=500 Urine Glucose (UA) >=500 Urine Ketones NEG Urine Occult Blood SMALL Urine Nitrite NEG Urine Bilirubin NEG Urine Urobilinogen LESS THAN 2 Urine Leukocyte Esterase SMALL Urine RBC 2 Urine WBC 75 Urine WBC Clumps MOD Urine Squamous Epithelial Cells 4 Urine Bacteria MANY Urine Hyaline Casts 7 Microscopic Urinalysis Comment CULTURE INDICATED Date/Time Source Procedure Growth Status 04/12/18 01:10 Blood Peripheral Aerobic Blood Culture Pending Received 04/12/18 01:10 Blood Peripheral Anaerobic Blood Culture Pending Received 04/12/18 02:30 Urine Random Urine Urine Culture Pending Received 04/12/18 01:00 Wound Leg Gram Stain - Final Resulted 04/12/18 01:00 Wound Leg Wound Culture Pending Resulted Last 48 hours Impressions Knee X-Ray 04/12/18 0023 Signed Impressions: CONCLUSION: Status post [id number] amputation without evidence of active bone loss or o bvious infection Chest X-Ray 04/12/18 0022 Signed Impressions: CONCLUSION: Negative examination. Assessment and Plan Plan R BKA cellulitis and abscess, partially drained Plain XRay does not look like it involves bone 1. To OR tomorrow (Th) for drainage, irrigation and debridement 2. Will consult wound care tomorrow after surgical debridement 3. Discussed with patient 4. Would continue antibiotics and check A1c Nathanael Jean-Baptiste MD FACS [employer]PV[employer] marine pipe welder [facility] - [facility] at [facility] [phone] Nathanael Jean-Baptiste MD Apr 12, 2018 13:00
--- NOTE | 2018-04-12 13:42 | EKG ---
Date Performed: 04/12/2018 Time Performed: 07:51:52 PTAGE: 42 years EKG: Sinus rhythm Normal ECG PREVIOUS TRACING : 04/12/2018 02.02 DOCTOR: Rick Rendon Interpretating Date/Time 04/12/2018 13:40:36
--- NOTE | 2018-04-12 13:53 | EKG ---
Date Performed: 04/12/2018 Time Performed: 02:02:01 PTAGE: 42 years EKG: Sinus rhythm NORMAL ECG NO PREVIOUS TRACING DOCTOR: Rick Rendon Interpretating Date/Time 04/12/2018 13:51:04
[2018-04-12 13:57] LABS: TROPONIN I LESS THAN 0.02 NG/ML (0.02-0.05)
[2018-04-12] MEDS: oxyCODONE/ACETAMINOPHEN 5 MG/325 MG TAB PO PRN (15:31)
[2018-04-12 17:21] LABS: HEMOGLOBIN A1C 9.3 % (4.3-6.0)
[2018-04-12] MEDS ORDERED: GADODIAMIDE PF 287 MG/ML 20 ML VIAL (for RAD MRI) IVCONTRAST ONE (18:21)
--- NOTE | 2018-04-12 18:42 | RADRPT ---
EXAM DATE: 04/12/2018 6:31 PM EDT AGE/SEX: 42 years / Female INDICATIONS: Infected stump. CLINICAL DATA: This is the patient's subsequent encounter. Patient reports that signs and symptoms h ave been present for 4 - 6 days and indicates a pain score of 2/10. MEDICAL/SURGICAL HISTORY: Diabetes. Hypertension. Chronic obstructive pulmonary disease. Tessa kashmir bypass. Tubal ligation. Right leg amputation. COMPARISON: [facility] [place], KNEE RIGHT COMPLETE ([id number]), 04/12/2018. . TECHNIQUE: Multiplanar, multisequence MRI examination was performed without and with ml Omniscan (ga dodiamide) contrast as single exam dose. FINDINGS: Bones: Below the knee amputation. Marrow signal intensity of the remaining tibia is normal. There are cystic lucencies within the marrow of the femur. Muscle: Normal signal without evidence of edema, hemorrhage or atrophy. Soft Tissues: Diffuse soft tissue swelling of the distal leg and stump. There is enhancement as well Other: The neurovascular structures are intact. CONCLUSION: 1. Cellulitic changes of the soft tissues/stump but no osteomyelitis. 2. Cystic changes of the marrow of the distal femur of uncertain etiology. Electronically signed by: Geronimo Gu MD 04/12/2018 6:41 PM EDT
[2018-04-13] VITALS (23 sets, daily range): BP systolic 109–143; BP diastolic 65–93; PULSE 66–92; RESP 16–18; TEMP 98–99.9; O2SAT 94–95
[2018-04-13] MEDS: SODIUM CHLOR 0.9% 1000 ML INJ 1,000 ML IV SCH ×3 (01:54→14:32)
[2018-04-13] MEDS: PIPERACIL-TAZO 3.375 GM PREMIX 50 ML IV SCH ×4 (02:11→20:00)
[2018-04-13] MEDS: VANCOMYCIN INJ 1,500 MG in SODIUM CHLORID 0.9% 500 ML INJ 500 ML IV SCH (04:12)
[2018-04-13] MEDS: diphenhydrAMINE HCL 50 MG/ML VIAL IV PUSH SCH ×2 (04:12→15:56)
[2018-04-13 06:47] LABS: AUTOMATED NEUTROPHIL # 8.6 TH/MM3 (1.8-7.7); BASOPHIL # 0.1 TH/MM3 (0-0.2); BASOPHIL % 0.6 % (0.0-2.0); EOSINOPHIL # 0.9 TH/MM3 (0-0.4); EOSINOPHIL % 7.7 % (0.0-4.0); HEMATOCRIT 26.8 % (35.0-46.0); HEMOGLOBIN 8.6 GM/DL (11.6-15.3); LYMPHOCYTE # 1.6 TH/MM3 (1.0-4.8); MEAN CELL VOLUME 81.9 FL (80.0-100.0); MEAN CORPUSCULAR HEMOGLOBIN 26.1 PG (27.0-34.0); MEAN CORPUSCULAR HGB CONC 31.9 % (32.0-36.0); MONO % 6.2 % (0.0-8.0); MONOCYTE # 0.7 TH/MM3 (0-0.9); NEUT % 72.5 % (16.0-70.0); PLATELET COUNT 428 TH/MM3 (150-450); RED BLOOD COUNT 3.27 MIL/MM3 (4.00-5.30); RED CELL DISTRIBUTION WIDTH 14.1 % (11.6-17.2); WHITE BLOOD COUNT 11.9 TH/MM3 (4.0-11.0)
[2018-04-13 07:12] LABS: BICARBONATE 18.7 MEQ/L (21.0-32.0); CALCIUM 7.6 MG/DL (8.5-10.1); CREATININE 2.1 MG/DL (0.50-1.00)
[2018-04-13] MEDS: INSULIN ASPART SUPPLEMENTAL SCALE SQ SCH ×4 (08:00→21:00)
[2018-04-13] MEDS: SODIUM CHLORIDE 0.9% FLUSH 10 ML FLUSH IV FLUSH SCH ×2 (08:20→21:00)
[2018-04-13] MEDS: MORPHINE SULFATE 4 MG/ML INJ IV PRN (08:20)
[2018-04-13] MEDS: DOCUSATE SODIUM 50 MG/SENNA 8.6 MG TAB PO SCH ×2 (08:21→21:00)
[2018-04-13] MEDS: LISINOPRIL 5 MG TAB PO SCH (08:21)
[2018-04-13] MEDS: ONDANSETRON ODT 4 MG TAB PO PRN ×2 (08:21→21:06)
[2018-04-13] MEDS: ATORVASTATIN 80 MG TAB PO SCH (08:21)
[2018-04-13] MEDS ORDERED: ONDANSETRON HCL 4 MG/2 ML VIAL IV PUSH ONE (12:00)
[2018-04-13] MEDS ORDERED: PROPOFOL 200 MG/20 ML AMP IV ONE (12:00)
[2018-04-13] MEDS ORDERED: LIDOCAINE HCL 1% PF 5 ML SYRINGE OTHER ONE (12:00)
[2018-04-13] MEDS ORDERED: PHENYLEPH/NS 1000 MCG/10 ML SYR IV ONE (12:00)
--- NOTE | 2018-04-13 15:46 | HHI.PR ---
Subjective Remarks Patient reports she is feeling okay. Pain is controlled. Objective Vitals Vital Signs Date Time Temp Pulse Resp B/P (MAP) Pulse Ox O2 Delivery O2 Flow Rate FiO2 04/13/18 12:00 70 04/13/18 12:00 98.5 75 18 109/68 (82) 94 04/13/18 11:00 68 04/13/18 10:00 74 04/13/18 09:00 74 04/13/18 08:41 16 04/13/18 08:00 66 04/13/18 08:00 99.1 74 18 115/65 (82) 94 04/13/18 07:00 66 04/13/18 07:00 66 04/13/18 06:00 74 04/13/18 04:00 98.2 67 18 115/65 (82) 95 04/13/18 04:00 68 04/13/18 03:00 68 04/13/18 02:00 72 04/13/18 01:00 82 04/13/18 00:00 99.9 79 18 118/65 (82) 94 04/13/18 00:00 84 04/12/18 23:00 73 04/12/18 22:00 84 04/12/18 21:00 84 04/12/18 20:00 98.6 73 18 97/56 (70) 95 04/12/18 20:00 73 04/12/18 17:00 74 04/12/18 16:01 16 04/12/18 16:00 84 04/12/18 16:00 98.8 88 16 110/68 (82) 94 I/O 04/12/18 04/12/18 04/12/18 04/13/18 04/13/18 04/13/18 07:00 15:00 23:00 07:00 15:00 23:00 Intake Total 1050 ml 49 ml 1398 ml Output Total 2 ml Balance 1050 ml 49 ml 1396 ml Intake Oral 400 ml IV Total 1050 ml 49 ml 998 ml Output Urine Total 2 ml Result Diagram: 04/13/18 0505 04/13/18 0505 Objective Remarks GENERAL: This is a well-nourished, well-developed patient, in no apparent distress. CARDIOVASCULAR: Normal rate and regular rhythm without murmurs, gallops, or rubs. RESPIRATORY: Good respiratory efforts. Breath sounds equal and clear to auscultation bilaterally. GASTROINTESTINAL: Abdomen soft, non-tender, non-distended. Normal active bowel sounds MUSCULOSKELETAL: Status post right BKA. Stump is obviously infected and is draining pus. Surrounding cellulitis noted. NEURO: Alert & Oriented x4 to person, place, time, situation. Moves all ext x4 PSYCH: Appropriate mood and affect. A/P Assessment and Plan 42-year-old female with: Cellulitis/infected right BKA stump. - Infectious disease and vascular surgery following - Vancomycin/Zosyn - Patient will go to OR today with vascular surgery for debridement. MRI negative for osteomyelitis. 2. Diabetes mellitus Hemoglobin A1c of 9.3 Holding long-acting insulin as patient n.p.o. Sliding-scale insulin Monitor blood glucose 3. Hypertension/hyperlipidemia Continue home medications 4. JOSE GUADALUPE -Baseline renal function unknown. Cont IVF Discharge Planning [place]. Case management aware. Patient will go to OR today. Lashawn Orosco MD Apr 13, 2018 15:46
--- NOTE | 2018-04-13 16:19 | HHI.PR ---
cc: Nathanael Jean-Baptiste MD Immediate Post Op Note Procedure Date: Apr 13, 2018 Pre Op Diagnosis: Open R BKA, wound Post Op Diagnosis: Open R BKA, wound Surgeon: Nathanael Jean-Baptiste Internet Network Specialist(s): Ileana Leslie Procedure: R BKA debridement Findings: no overt infection decent perfusion Complications: none Specimen(s) removed: none Estimated blood loss: 10mL Anesthesia: LMA Drains: None Fluids: 300mL IVF Patient to: PACU Patient Condition: Good Date/Time of Procedure: SEE SURGICAL CARE RECORD Nathanael Jean-Baptiste MD Apr 13, 2018 16:19
[2018-04-13] MEDS ORDERED: DO NOT ADM ANY ANTICOAGULANT DRUGS PRN (16:22)
[2018-04-13] MEDS ORDERED: *morphine SULFATE 4 MG/ML PERIprocedure ONLY ONE (16:39)
[2018-04-13] MEDS ORDERED: *diphenhydrAMINE HCL 50 MG/ML VIAL PERIprocedural Use ONLY ONE (16:51)
[2018-04-13] MEDS: oxyCODONE/ACETAMINOPHEN 5 MG/325 MG TAB PO PRN (21:15)
[2018-04-14] VITALS (21 sets, daily range): BP systolic 101–227; BP diastolic 57–99; PULSE 68–133; RESP 16–27; TEMP 98.9–99; O2SAT 91–98
[2018-04-14] MEDS ORDERED: PHARMACY ORDERED LAB ONE (03:45)
[2018-04-14] MEDS: diphenhydrAMINE HCL 50 MG/ML VIAL IV PUSH SCH ×2 (04:00→16:00)
[2018-04-14] MEDS: PIPERACIL-TAZO 3.375 GM PREMIX 50 ML IV SCH ×2 (04:14→08:59)
[2018-04-14] MEDS: SODIUM CHLOR 0.9% 1000 ML INJ 1,000 ML IV SCH ×3 (04:18→15:45)
[2018-04-14 05:14] LABS: AUTOMATED NEUTROPHIL # 6.8 TH/MM3 (1.8-7.7); BASOPHIL # 0.1 TH/MM3 (0-0.2); BASOPHIL % 0.8 % (0.0-2.0); EOSINOPHIL # 0.9 TH/MM3 (0-0.4); EOSINOPHIL % 9.3 % (0.0-4.0); HEMATOCRIT 27.5 % (35.0-46.0); HEMOGLOBIN 8.9 GM/DL (11.6-15.3); LYMPH % 15.2 % (9.0-44.0); LYMPHOCYTE # 1.5 TH/MM3 (1.0-4.8); MEAN CELL VOLUME 82.2 FL (80.0-100.0); MEAN CORPUSCULAR HEMOGLOBIN 26.6 PG (27.0-34.0); MEAN CORPUSCULAR HGB CONC 32.3 % (32.0-36.0); MEAN PLATELET VOLUME 8.9 FL (7.0-11.0); MONO % 6.3 % (0.0-8.0); MONOCYTE # 0.6 TH/MM3 (0-0.9); NEUT % 68.4 % (16.0-70.0); PLATELET COUNT 447 TH/MM3 (150-450); RED BLOOD COUNT 3.35 MIL/MM3 (4.00-5.30); WHITE BLOOD COUNT 9.9 TH/MM3 (4.0-11.0)
--- NOTE | 2018-04-14 06:31 | MP ---
cc: Nathanael Jean-Baptiste MD DATE OF OPERATION: 04/13/2018 PREOPERATIVE DIAGNOSIS: Right below-knee amputation stump infection. POSTOPERATIVE DIAGNOSIS: Right below-knee amputation stump infection. PROCEDURE PERFORMED: Irrigation and debridement of skin and subcutaneous tissue of right lower extremity stump. ATTENDING SURGEON: Nathanael Jean-Baptiste MD GAS WELDING MACHINE OPERATOR SURGEON: RICCARDO Apodaca ANESTHESIA: General. INDICATIONS: Ms. Villalta is a 42-year-old lady with a right below-knee amputation. She has a wound over this and is taken to the operating room for wound exploration and revision. DESCRIPTION OF PROCEDURE: Informed consent was obtained from the patient. She was taken to the operating room and placed supine on the operating room table. An appropriate timeout was taken to ensure the patient's identity, operative site and planned procedure. The administration of antibiotics was not necessary, as the patient is on systemic and therapeutic antibiotics and these will be continued postoperatively for ongoing therapy. Everyone in the room agreed with the timeout, and we proceeded. She was placed under general anesthesia and the right leg was prepped and draped. The wound was irrigated and debrided sharply of the skin and subcutaneous tissue using a #10 blade. Granulation tissue was encountered. Hemostasis was achieved. The wound was irrigated copiously. It was noted to be quite clean and it was closed with vertical mattress and interrupted 2-0 nylon sutures. Sponge and needle counts were correct at the end of the case. I was present and scrubbed for the entire procedure. Nathanael Jean-Baptiste MD RJTabitha/SM , 05:34 AM , 06:29 AM
--- NOTE | 2018-04-14 07:39 | PD.VS.PN ---
Subjective POD #: 1 Procedure(s): R BKA debridement and closure Subjective/Hospital Course pain controlled, resting comfortably Objective Vitals/I&O Date Time Temp Pulse Resp B/P (MAP) Pulse Ox O2 Delivery O2 Flow Rate FiO2 04/14/18 00:00 68 04/14/18 00:00 75 16 98 04/14/18 00:00 75 04/13/18 23:00 74 04/13/18 22:54 18 04/13/18 22:00 80 04/13/18 21:00 86 04/13/18 20:00 98.0 80 16 143/93 (110) 94 04/13/18 20:00 74 04/13/18 20:00 72 04/13/18 19:00 86 04/13/18 18:00 92 04/13/18 17:00 76 04/13/18 16:45 98.8 73 16 95/53 (67) 95 Nasal Cannula 2 04/13/18 16:30 98.8 71 16 95/53 (67) 95 Nasal Cannula 2 04/13/18 16:22 98.8 76 16 95/53 (67) 95 Nasal Cannula 2 04/13/18 16:00 76 04/13/18 15:00 68 04/13/18 14:00 76 04/13/18 13:00 70 04/13/18 12:00 70 04/13/18 12:00 98.5 75 18 109/68 (82) 94 04/13/18 11:00 68 04/13/18 10:00 74 04/13/18 09:00 74 04/13/18 08:41 16 04/13/18 08:00 66 04/13/18 08:00 99.1 74 18 115/65 (82) 94 Exam: R BKA wrapped with SARAI Laboratory Laboratory Tests Test 04/14/18 03:33 White Blood Count 9.9 Red Blood Count 3.35 Hemoglobin 8.9 Hematocrit 27.5 Mean Corpuscular Volume 82.2 Mean Corpuscular Hemoglobin 26.6 Mean Corpuscular Hemoglobin Concent 32.3 Red Cell Distribution Width 14.0 Platelet Count 447 Mean Platelet Volume 8.9 Neutrophils (%) (Auto) 68.4 Lymphocytes (%) (Auto) 15.2 Monocytes (%) (Auto) 6.3 Eosinophils (%) (Auto) 9.3 Basophils (%) (Auto) 0.8 Neutrophils # (Auto) 6.8 Lymphocytes # (Auto) 1.5 Monocytes # (Auto) 0.6 Eosinophils # (Auto) 0.9 Basophils # (Auto) 0.1 CBC Comment DIFF FINAL Differential Comment Random Vancomycin Level 35.0 Date/Time Source Procedure Growth Status 04/12/18 01:10 Blood Peripheral Aerobic Blood Culture - Preliminary NO GROWTH IN 1 DAY Resulted 04/12/18 01:10 Blood Peripheral Anaerobic Blood Culture - Preliminary NO GROWTH IN 1 DAY Resulted 04/12/18 02:30 Urine Random Urine Urine Culture - Preliminary Gram Negative Amol Resulted 04/12/18 01:00 Wound Leg Gram Stain - Final Resulted 04/12/18 01:00 Wound Culture - Preliminary Staphylococcus Species Resulted Assessment and Plan Plan POD#1 s/p R BKA debridement and closure 1. dressing down tomorrow (POD#2) and changed daily thereafter 2. likely ok to d/c tomorrow from a vascular surgery standpoint 3. Would complete 1 week of antibiotics for cellulitis Nathanael Jean-Baptiste MD Apr 14, 2018 07:39
[2018-04-14] MEDS: INSULIN ASPART SUPPLEMENTAL SCALE SQ SCH ×4 (08:59→22:28)
[2018-04-14] MEDS: ATORVASTATIN 80 MG TAB PO SCH (09:00)
[2018-04-14] MEDS: ONDANSETRON ODT 4 MG TAB PO PRN (09:00)
[2018-04-14] MEDS: DOCUSATE SODIUM 50 MG/SENNA 8.6 MG TAB PO SCH ×2 (09:00→21:00)
[2018-04-14] MEDS: SODIUM CHLORIDE 0.9% FLUSH 10 ML FLUSH IV FLUSH SCH ×2 (09:00→22:28)
[2018-04-14] MEDS: LISINOPRIL 5 MG TAB PO SCH (09:01)
[2018-04-14] MEDS: oxyCODONE/ACETAMINOPHEN 5 MG/325 MG TAB PO PRN (09:01)
[2018-04-14] MEDS: METOCLOPRAMIDE HCL 10 MG/2 ML VIAL IV PUSH PRN ×2 (10:02→13:28)
--- NOTE | 2018-04-14 10:20 | HHI.PR ---
Subjective Remarks The patient states that she thinks her nausea and vomiting is from the pain medications. She says that her doctor does follow protein leaking in her urine. She said that she has been having some shortness of breath and cough. Discussed with nursing and infectious disease at the bedside. Objective Vitals Vital Signs Date Time Temp Pulse Resp B/P (MAP) Pulse Ox O2 Delivery O2 Flow Rate FiO2 04/14/18 09:52 95 21 04/14/18 07:31 99.0 79 20 117/60 (79) 93 04/14/18 04:00 68 04/14/18 00:00 68 04/14/18 00:00 75 16 98 04/14/18 00:00 75 04/13/18 23:00 74 04/13/18 22:54 18 04/13/18 22:00 80 04/13/18 21:00 86 04/13/18 20:00 98.0 80 16 143/93 (110) 94 04/13/18 20:00 74 04/13/18 20:00 72 04/13/18 19:00 86 04/13/18 18:00 92 04/13/18 17:00 76 04/13/18 16:45 98.8 73 16 95/53 (67) 95 Nasal Cannula 2 04/13/18 16:30 98.8 71 16 95/53 (67) 95 Nasal Cannula 2 04/13/18 16:22 98.8 76 16 95/53 (67) 95 Nasal Cannula 2 04/13/18 16:00 76 04/13/18 15:00 68 04/13/18 14:00 76 04/13/18 13:00 70 04/13/18 12:00 70 04/13/18 12:00 98.5 75 18 109/68 (82) 94 04/13/18 11:00 68 I/O 04/13/18 04/13/18 04/13/18 04/14/18 04/14/18 04/14/18 07:00 15:00 23:00 07:00 15:00 23:00 Intake Total 1398 ml 1060 ml 340 ml Output Total 2 ml 10 ml 800 ml Balance 1396 ml 1050 ml -460 ml Intake Oral 400 ml 60 ml 240 ml IV Total 998 ml 700 ml 100 ml Other 300 ml Output Urine Total 2 ml 800 ml Estimated Blood Loss 10 ml # Voids 3 # Bowel Movements 0 Result Diagram: 04/14/18 0333 04/13/18 0505 Imaging Last Impressions Knee X-Ray 04/12/18 0023 Signed Impressions: CONCLUSION: Status post dyfbd-[id number]-[id number] amputation without evidence of active bone loss or o bvious infection Chest X-Ray 04/12/18 0022 Signed Impressions: CONCLUSION: Negative examination. Lower Extremity MRI 04/12/18 0000 Signed Impressions: CONCLUSION: 1. Cellulitic changes of the soft tissues/stump but no osteomyelitis. 2. Cystic changes of the marrow of the distal femur of uncertain etiology. Objective Remarks GENERAL: This is a well-nourished, well-developed patient, in no apparent distress. CARDIOVASCULAR: Normal rate and regular rhythm without murmurs, gallops, or rubs. RESPIRATORY: Good respiratory efforts. Breath sounds equal and clear to auscultation bilaterally. GASTROINTESTINAL: Abdomen soft, non-tender, non-distended. Normal active bowel sounds MUSCULOSKELETAL: Status post right BKA. Stump is bandaged. NEURO: Alert & Oriented x4 to person, place, time, situation. Moves all ext x4 PSYCH: Appropriate mood and affect. Procedures Debridement A/P Assessment and Plan Cellulitis/infected right BKA stump. Infectious disease and vascular surgery consults appreciated. MRI negative for osteomyelitis. S/p debridement 04/14. - Vancomycin/Zosyn changed to ceftriaxone per sensitivities. - follow up with vascular and ID. - pain control with a bowel regimen. Diabetes mellitus Hemoglobin A1c of 9.3%. - Sliding-scale insulin. - Monitor blood glucose. - resume long-acting insulin when appropriate. JOSE GUADALUPE Creatinine is increasing. - d/c vancomycin and Zosyn. - increase IVFs. - follow BMP. - check renal US, calculate FENa. HTN Blood pressure has been on the low side. - hold antihypertensives and monitor. Anemia Unsure of baseline. - follow CBC. - anemia work-up. PPx: SCDs Discharge Planning Await improvement Wayne Luis DO Apr 14, 2018 10:20
[2018-04-14] MEDS: POLYETHYLENE GLYCOL 17 GM PKG PO SCH ×2 (10:24→10:33)
--- NOTE | 2018-04-14 10:32 | HHI.IDPN ---
Subjective Subjective Remarks is a 42 y/o CF with PMHx of DM with neuropathy, Charcots joint of Left foot. She reports prior h/o toe and leg infection needing IV antibiotics and progressing despite that needing Right BKA. She reports she is from [facility] and had surgeries locally in [place]. She also reports h/o hypertension, hyperlipidemia and COPD presents the emergency department with a 2 day history of a painful, swollen red and draining right stump. The patient is status post BKA and wears a prosthetic. She reports a crack in the rubber on her prosthetic that rubbed a hole in her skin. She saw her PCP approximately 10 days ago who gave her a prescription for clindamycin but stated that it was not infected at that time. The patient reports compliance with the clindamycin. She denies any fever/chills. She reports approx 3 days prior to admission she started having increasing redness and swelling at amputation stump site. She decided to present to the hospital. ID consulted for stump site cellulitis. Overnight events reviewed No fevers No rash no diarrhea Had I&D of abscess at the amputation stump site. Antibiotics Zosyn IV Vanco IV Lines Line sites with no e.o infection Past Medical History Past Medical History Diabetes mellitus, hypertension, hyperlipidemia COPD Past Surgical History Right BKA Gastric bypass Allergies: Coded Allergies: hydrocodone (Verified Allergy, Severe, 04/11/18) vancomycin (Verified Allergy, Severe, Hives, 04/12/18) per pt she is able to take vancomycin if she is premedicated with benadryl Objective . Vital Signs Date Time Temp Pulse Resp B/P (MAP) Pulse Ox O2 Delivery O2 Flow Rate FiO2 04/14/18 09:52 95 21 04/14/18 07:31 99.0 79 20 117/60 (79) 93 04/14/18 04:00 68 04/14/18 00:00 68 04/14/18 00:00 75 16 98 04/14/18 00:00 75 04/13/18 23:00 74 04/13/18 22:54 18 04/13/18 22:00 80 04/13/18 21:00 86 04/13/18 20:00 98.0 80 16 143/93 (110) 94 04/13/18 20:00 74 04/13/18 20:00 72 04/13/18 19:00 86 04/13/18 18:00 92 04/13/18 17:00 76 04/13/18 16:45 98.8 73 16 95/53 (67) 95 Nasal Cannula 2 04/13/18 16:30 98.8 71 16 95/53 (67) 95 Nasal Cannula 2 04/13/18 16:22 98.8 76 16 95/53 (67) 95 Nasal Cannula 2 04/13/18 16:00 76 04/13/18 15:00 68 04/13/18 14:00 76 04/13/18 13:00 70 04/13/18 12:00 70 04/13/18 12:00 98.5 75 18 109/68 (82) 94 04/13/18 11:00 68 . Laboratory Tests Test 04/13/18 05:05 04/14/18 03:33 White Blood Count 11.9 TH/MM3 9.9 TH/MM3 Red Blood Count 3.27 MIL/MM3 3.35 MIL/MM3 Hemoglobin 8.6 GM/DL 8.9 GM/DL Hematocrit 26.8 % 27.5 % Mean Corpuscular Volume 81.9 FL 82.2 FL Mean Corpuscular Hemoglobin 26.1 PG 26.6 PG Mean Corpuscular Hemoglobin Concent 31.9 % 32.3 % Red Cell Distribution Width 14.1 % 14.0 % Platelet Count 428 TH/MM3 447 TH/MM3 Mean Platelet Volume 9.0 FL 8.9 FL Neutrophils (%) (Auto) 72.5 % 68.4 % Lymphocytes (%) (Auto) 13.0 % 15.2 % Monocytes (%) (Auto) 6.2 % 6.3 % Eosinophils (%) (Auto) 7.7 % 9.3 % Basophils (%) (Auto) 0.6 % 0.8 % Neutrophils # (Auto) 8.6 TH/MM3 6.8 TH/MM3 Lymphocytes # (Auto) 1.6 TH/MM3 1.5 TH/MM3 Monocytes # (Auto) 0.7 TH/MM3 0.6 TH/MM3 Eosinophils # (Auto) 0.9 TH/MM3 0.9 TH/MM3 Basophils # (Auto) 0.1 TH/MM3 0.1 TH/MM3 CBC Comment DIFF FINAL DIFF FINAL Differential Comment Laboratory Tests Test 04/12/18 13:09 04/13/18 05:05 Total Creatine Kinase 53 U/L Troponin I LESS THAN 0.02 NG/ML Blood Urea Nitrogen 17 MG/DL Creatinine 2.10 MG/DL Random Glucose 129 MG/DL Calcium Level 7.6 MG/DL Sodium Level 138 MEQ/L Potassium Level 3.9 MEQ/L Chloride Level 108 MEQ/L Carbon Dioxide Level 18.7 MEQ/L Anion Gap 11 MEQ/L Estimat Glomerular Filtration Rate 26 ML/MIN Microbiology Date/Time Source Procedure Growth Status 04/12/18 01:10 Blood Peripheral Aerobic Blood Culture - Preliminary NO GROWTH IN 1 DAY Resulted 04/12/18 01:10 Blood Peripheral Anaerobic Blood Culture - Preliminary NO GROWTH IN 1 DAY Resulted 04/12/18 01:05 Blood Peripheral Aerobic Blood Culture - Preliminary NO GROWTH IN 1 DAY Resulted 04/12/18 01:05 Blood Peripheral Anaerobic Blood Culture - Preliminary NO GROWTH IN 1 DAY Resulted 04/12/18 02:30 Urine Random Urine Urine Culture - Final Escherichia Coli Complete 04/12/18 01:00 Wound Leg Gram Stain - Final Complete 04/12/18 01:00 Wound Culture - Final Staphylococcus Aureus Complete Imaging Last Impressions Knee X-Ray 04/12/18 0023 Signed Impressions: CONCLUSION: Status post gquqy-ugw-kxwk amputation without evidence of active bone loss or o bvious infection Chest X-Ray 04/12/18 0022 Signed Impressions: CONCLUSION: Negative examination. Lower Extremity MRI 04/12/18 0000 Signed Impressions: CONCLUSION: 1. Cellulitic changes of the soft tissues/stump but no osteomyelitis. 2. Cystic changes of the marrow of the distal femur of uncertain etiology. Physical Exam GENERAL: Obese, well-developed patient, in no apparent distress. SKIN: No rashes, ecchymoses or lesions. Cool and dry. HEAD: Atraumatic. Normocephalic. No temporal or scalp tenderness. EYES: Pupils equal round and reactive. Extraocular motions intact. No scleral icterus. No injection or drainage. ENT: Nose without bleeding, purulent drainage or septal hematoma. Throat without erythema, tonsillar hypertrophy or exudate. Uvula midline. Airway patent. NECK: Trachea midline. Supple, nontender, no meningeal signs. CARDIOVASCULAR: RHS audible. RESPIRATORY: Clear to auscultation. Breath sounds equal bilaterally. No wheezes , rales, or rhonchi. GASTROINTESTINAL: Abdomen soft, non-tender, nondistended. MUSCULOSKELETAL: rt BKA stump site with post op dressing. NEUROLOGICAL: Awake and alert. Non focal Psych cooperative IV line sites with no e.o infection Assessment & Plan Remarks Right BKA amputation site infection with possible abscess, underlying osteomyelitis. E.coli in urine: asymptomatic. DM with Neuropathy Left foot with Charcot changes. Acute renal failure: ? acute on chronic. Elevated CRP and ESR. Recs Vanco IV and Zosyn IV DCed. Switched to Rocephin IV. Uo good. Follow Cr. Follow cultures. Follow clinically. dw : follow Cr. Will likely need IV antibiotics on discharge, await further discussion with to see if bone involvement. Ivelisse Narayan MD Apr 14, 2018 10:32
[2018-04-14] MEDS ORDERED: traMADol HCL 50 MG TAB PO PRN (10:45)
[2018-04-14] MEDS ORDERED: RESP: ALBUTEROL 2.5 MG/IPRATROPIUM 0.5 MG NEB (PRN) NEB (10:45)
[2018-04-14] MEDS ORDERED: cefTRIAXone INJ 1,000 MG in SODIUM CHLORIDE 0.9% INJ 100 ML IV SCH (11:00)
--- NOTE | 2018-04-14 11:22 | RADRPT ---
EXAM DATE: 04/14/2018 11:17 AM EDT AGE/SEX: 42 years / Female INDICATIONS: Cough. CLINICAL DATA: This is the patient's subsequent encounter. Patient reports that signs and symptoms h ave been present for 2 days and indicates a pain score of 0/10. MEDICAL/SURGICAL HISTORY: Diabetes mellitus type II. . Lower leg amputation COMPARISON: [facility] – [place], CHEST SINGLE AP, 04/12/2018. . FINDINGS: There is increased density at the left base. The right lung is clear. The heart size is normal. CONCLUSION: Left base atelectasis or consolidation which is worse when compared to the prior exam. Electronically signed by: Darian Ham MD 04/14/2018 11:21 AM EDT
[2018-04-14] MEDS: cefTRIAXone INJ 2,000 MG in SODIUM CHLORIDE 0.9% INJ 100 ML IV SCH (12:08)
[2018-04-14 12:25] LABS: BICARBONATE 17.6 MEQ/L (21.0-32.0); CALCIUM 8.1 MG/DL (8.5-10.1); CREATININE 2.65 MG/DL (0.50-1.00)
--- NOTE | 2018-04-14 12:55 | RADRPT ---
EXAM DATE: 04/14/2018 12:38 PM EDT AGE/SEX: 42 years / Female INDICATIONS: Increased BUN/Creatnine. CLINICAL DATA: This is the patient's initial encounter. Patient reports that signs and symptoms have been present for 1 day and indicates a pain score of 0/10. MEDICAL/SURGICAL HISTORY: Hypertension. Chronic obstructive pulmonary disease. Asthma. Diabete s. Anemia. Tubal ligation. section. Laser eye surgery. Gastric bypass. Dilation and curett age. COMPARISON: No prior exams available for comparison. MEASUREMENTS: Right Kidney:__12.7 x 6.7 x 6.9 cm Left Kidney:__12.8 x 7.0 x 1.8 cm FINDINGS: Right Kidney: Slight Increased echotexture. No mass or hydronephrosis. Left Kidney: Slight Increased echotexture. No mass or hydronephrosis. Bladder: Decompressed. Not well evaluated. Other: CONCLUSION: 1. There is no evidence of hydronephrosis. 2. Slight increased echogenicity of the renal parenchyma bilaterally. Electronically signed by: Deniz Jose MD 04/14/2018 12:54 PM EDT
[2018-04-14 12:56] LABS: % SATURATION IRON PROFILE 12.8 % (20-50); IRON (FE) 25 MCG/DL (50-170); TOTAL IRON BINDING CAPACITY 196 MCG/DL (250-450)
[2018-04-14 13:21] LABS: FERRITIN 204 NG/ML (8-252)
[2018-04-14] MEDS ORDERED: LORazepam 2 MG/ML VIAL ONE (13:23)
[2018-04-14] MEDS ORDERED: HYDROmorphone HCL PF 2 MG/ML VIAL IV PUSH ONE (13:30)
[2018-04-14] MEDS ORDERED: RESP: ALBUTEROL 2.5 MG/IPRATROPIUM 0.5 MG NEB (SCH) NEB ONE (13:30)
[2018-04-14] MEDS ORDERED: PROCHLORPERAZINE INJ 10 MG/2 ML VIAL IV PUSH ONE (13:30)
[2018-04-14] MEDS ORDERED: LORazepam 2 MG/ML VIAL IV PUSH ONE (13:30)
[2018-04-14] MEDS ORDERED: LABETALOL HCL 100 MG/20 ML VIAL ONE (13:39)
[2018-04-14] MEDS ORDERED: hydrALAZINE HCL 20 MG/ML VIAL IV PUSH ONE (13:45)
[2018-04-14] MEDS ORDERED: LABETALOL HCL 100 MG/20 ML VIAL IV PUSH SCH (13:45)
[2018-04-14] MEDS ORDERED: methylPREDNISolone SOD SUCC 125 MG/2 ML VIAL IV PUSH ONE (14:00)
[2018-04-14] MEDS ORDERED: INSULIN HUMAN REGULAR 1,000 UNITS/10 ML VIAL SQ ONE (14:00)
[2018-04-14 14:07] LABS: AUTOMATED NEUTROPHIL # 4.5 TH/MM3 (1.8-7.7); BASOPHIL % 0.4 % (0.0-2.0); EOSINOPHIL # 0.2 TH/MM3 (0-0.4); EOSINOPHIL % 3.3 % (0.0-4.0); HEMATOCRIT 31.9 % (35.0-46.0); HEMOGLOBIN 10.3 GM/DL (11.6-15.3); LYMPH % 9.5 % (9.0-44.0); LYMPHOCYTE # 0.5 TH/MM3 (1.0-4.8); MEAN CELL VOLUME 82.2 FL (80.0-100.0); MEAN CORPUSCULAR HEMOGLOBIN 26.5 PG (27.0-34.0); MEAN CORPUSCULAR HGB CONC 32.3 % (32.0-36.0); MEAN PLATELET VOLUME 8.5 FL (7.0-11.0); MONO % 0.4 % (0.0-8.0); NEUT % 86.4 % (16.0-70.0); PLATELET COUNT 543 TH/MM3 (150-450); RED BLOOD COUNT 3.88 MIL/MM3 (4.00-5.30); RED CELL DISTRIBUTION WIDTH 14.1 % (11.6-17.2); WHITE BLOOD COUNT 5.2 TH/MM3 (4.0-11.0)
[2018-04-14 14:21] LABS: FOLATE GREATER THAN 20.0 NG/ML (3.1-17.5)
--- NOTE | 2018-04-14 14:26 | RADRPT ---
EXAM DATE: 04/14/2018 2:04 PM EDT AGE/SEX: 42 years / Female INDICATIONS: Shortness of breath and chest pain. CLINICAL DATA: This is the patient's initial encounter. Patient reports that signs and symptoms have been present for 2 days and indicates a pain score of 5/10. MEDICAL/SURGICAL HISTORY: Hypertension. Chronic obstructive pulmonary disease. Diabetes. Ast hma. None. [place] [facility] [place] . FINDINGS: A single AP view of the chest demonstrates the lungs to be symmetrically aerated without evidence of mass, infiltrate or effusion. The cardiomediastinal contours are unremarkable. Osseous structures a re intact. CONCLUSION: No acute cardiopulmonary process. Electronically signed by: Darian Ham MD 04/14/2018 2:24 PM EDT
[2018-04-14] MEDS ORDERED: DIATRIZOATE MEGLUM/DIATRIZOATE SOD 9 ML CUP PO ONE (14:45)
[2018-04-14] MEDS ORDERED: PIPERACIL-TAZO 2.25 GM PREMIX 50 ML IV SCH (15:00)
[2018-04-14] MEDS: FAMOTIDINE 20 MG/2 ML VIAL IV PUSH SCH (15:49)
[2018-04-14] MEDS: NYSTATIN 100,000 U/GM PWD 15 GM BTL TOPICAL SCH ×2 (17:48→22:27)
--- NOTE | 2018-04-14 19:55 | RADRPT ---
EXAM DATE: 04/14/2018 7:15 PM EDT AGE/SEX: 42 years / Female INDICATIONS: Diffuse abdominal pain. CLINICAL DATA: This is the patient's initial encounter. Patient reports that signs and symptoms have been present for 1 day and indicates a pain score of 5/10. MEDICAL/SURGICAL HISTORY: Cardiovascular disease. Hypertension. Diabetes. Tubal ligation. Ga stric bypass. RADIATION DOSE: 15.39 CTDI (mGy) COMPARISON: No prior exams available for comparison. TECHNIQUE: Multiple contiguous axial images were obtained through the abdomen. Images were obtained using multiple row detector helical technique. Using automated exposure control and adjustment of the mA and/or kV according to patient size, radiation dose was kept as low as reasonably achievable to o btain optimal diagnostic quality images. DICOM format image data is available electronically for rev iew and comparison. FINDINGS: There is bilateral lower lobe atelectasis versus pneumonia. The liver and spleen are normal in size a nd no focal defects are identified. The gallbladder is absent. The pancreas demonstrates normal cont our without evidence of mass or ductal dilatation. The adrenal glands and kidneys appear normal bilat erally. No hydronephrosis or mass lesions are identified. The appendix is identified and appears nor mal. No free fluid is identified. There are postsurgical changes following previous gastric bypass. Examination of the pelvis demonstrates no evidence of free fluid or pelvic mass. No abnormally enlarg ed inguinal or retroperitoneal lymph nodes are present. The bladder is unremarkable. CONCLUSION: No evidence of acute abdominal or pelvic process. No masses are identified. Electronically signed by: Abdirahman Arshad MD 04/14/2018 7:54 PM EDT
[2018-04-14] MEDS: metroNIDAZOLE 500 MG INJ 100 ML IV SCH (20:02)
[2018-04-14] MEDS: MORPHINE SULFATE 4 MG/ML INJ IV PRN (20:02)
--- NOTE | 2018-04-14 21:37 | RADRPT ---
EXAM DATE: 04/14/2018 9:01 PM EDT AGE/SEX: 42 years / Female INDICATIONS: Short of breath. CLINICAL DATA: This is the patient's initial encounter. Patient reports that signs and symptoms have been present for 1 day and indicates a pain score of 2/10. MEDICAL/SURGICAL HISTORY: Hypertension. Cholelithiasis. Gastric bypass. Tubal ligation. COMPARISON: No prior exams available for comparison. DOSE: 8.1 mCi Tc99m MAA IV 2.25 mCi Tc99m DTPA aerosol TECHNIQUE: Following five minutes of tidal breathing of DTPA aerosol, planar images of the lungs wer e performed in eight projections. The patient was then injected with MAA, and eight-view perfusion s can was performed. FINDINGS: There is a homogeneous pattern of aerosol delivery to the periphery of both lungs. No focal ventilat ory defects are seen. The perfusion lung scan demonstrates a homogenous pattern of uptake in both lungs. No segmental or s ubsegmental defects are seen. CONCLUSION: 1. Low probability of pulmonary embolism Electronically signed by: Abdirahman Arshad MD 04/14/2018 9:35 PM EDT
[2018-04-14] MEDS: ACETAMINOPHEN 325 MG TAB PO PRN (22:29)
[2018-04-15] VITALS (16 sets, daily range): BP systolic 124–159; BP diastolic 60–80; PULSE 64–82; RESP 10–26; TEMP 97.2–98.3; O2SAT 92–97
[2018-04-15] MEDS: FAMOTIDINE 20 MG/2 ML VIAL IV PUSH SCH ×2 (01:00→12:16)
[2018-04-15] MEDS: SODIUM CHLOR 0.9% 1000 ML INJ 1,000 ML IV SCH (02:00)
[2018-04-15] MEDS: metroNIDAZOLE 500 MG INJ 100 ML IV SCH (03:46)
[2018-04-15] MEDS: diphenhydrAMINE HCL 50 MG/ML VIAL IV PUSH SCH ×2 (03:46→16:29)
[2018-04-15] MEDS: MORPHINE SULFATE 4 MG/ML INJ IV PRN ×3 (03:47→20:09)
[2018-04-15 04:53] LABS: HEMATOCRIT 27.5 % (35.0-46.0); HEMOGLOBIN 9.2 GM/DL (11.6-15.3); MEAN CELL VOLUME 81.1 FL (80.0-100.0); MEAN CORPUSCULAR HEMOGLOBIN 27.1 PG (27.0-34.0); MEAN CORPUSCULAR HGB CONC 33.4 % (32.0-36.0); MEAN PLATELET VOLUME 8.8 FL (7.0-11.0); PLATELET COUNT 433 TH/MM3 (150-450); RED BLOOD COUNT 3.39 MIL/MM3 (4.00-5.30); WHITE BLOOD COUNT 12.9 TH/MM3 (4.0-11.0)
[2018-04-15 05:22] LABS: BICARBONATE 16.9 MEQ/L (21.0-32.0); CREATININE 2.76 MG/DL (0.50-1.00)
[2018-04-15] MEDS: POLYETHYLENE GLYCOL 17 GM PKG PO SCH (08:24)
[2018-04-15] MEDS: SODIUM CHLORIDE 0.9% FLUSH 10 ML FLUSH IV FLUSH PRN (08:24)
[2018-04-15] MEDS: SODIUM CHLORIDE 0.9% FLUSH 10 ML FLUSH IV FLUSH SCH ×2 (08:24→21:00)
[2018-04-15] MEDS: INSULIN ASPART SUPPLEMENTAL SCALE SQ SCH ×4 (08:24→20:07)
[2018-04-15] MEDS: ATORVASTATIN 80 MG TAB PO SCH (08:24)
[2018-04-15] MEDS: NYSTATIN 100,000 U/GM PWD 15 GM BTL TOPICAL SCH ×2 (08:25→20:08)
[2018-04-15] MEDS: DOCUSATE SODIUM 50 MG/SENNA 8.6 MG TAB PO SCH ×2 (08:25→20:07)
--- NOTE | 2018-04-15 09:56 | HHI.PR ---
Subjective Remarks The patient was feeling a lot better this morning. She believes she might of had a bad reaction to the tramadol. She currently denies any symptoms. She says she is urinating but urinating less than normal. She said she is not sleeping well. She has been having watery diarrhea. Discussed with nursing. Objective Vitals Vital Signs Date Time Temp Pulse Resp B/P (MAP) Pulse Ox O2 Delivery O2 Flow Rate FiO2 04/15/18 06:00 65 04/15/18 04:00 72 04/15/18 04:00 98.0 72 26 124/60 (81) 94 04/15/18 03:52 18 04/15/18 02:00 69 04/15/18 00:00 77 04/15/18 00:00 98.3 77 24 131/66 (87) 95 04/14/18 22:00 83 04/14/18 17:45 88 04/14/18 15:04 98 Nasal Cannula 5.00 04/14/18 14:00 96 Nasal Cannula 5.00 04/14/18 14:00 121/70 (87) 04/14/18 14:00 107 123/71 (88) 92 04/14/18 13:55 103 127/76 (93) 92 04/14/18 13:49 104 134/69 (90) 91 04/14/18 13:46 120 27 179/80 (113) 92 04/14/18 13:25 125 210/99 (136) 04/14/18 13:19 133 227/76 (126) 04/14/18 13:15 22 04/14/18 13:10 133 04/14/18 13:00 82 04/14/18 12:00 78 04/14/18 11:00 98.9 93 20 101/57 (72) 92 04/14/18 11:00 91 04/14/18 10:15 18 04/14/18 10:00 86 04/14/18 09:52 95 21 I/O 04/14/18 04/14/18 04/14/18 04/15/18 04/15/18 04/15/18 07:00 15:00 23:00 07:00 15:00 23:00 Intake Total 340 ml 480 ml Output Total 800 ml 800 ml Balance -460 ml -800 ml 480 ml Intake Oral 240 ml 480 ml IV Total 100 ml Output Urine Total 800 ml 800 ml # Voids 2 # Bowel Movements 2 2 Result Diagram: 04/15/1841204/15/18412 Imaging Last Impressions Renal Ultrasound 04/14/18 Signed Impressions: CONCLUSION: 1. There is no evidence of hydronephrosis. 2. Slight increased echogenicity of the renal parenchyma bilaterally. Lung Scan-VQ Nuclear Medicine 04/14/18 Signed Impressions: CONCLUSION: 1. Low probability of pulmonary embolism Chest X-Ray 04/14/18 Signed Impressions: CONCLUSION: No acute cardiopulmonary process. Abdomen/Pelvis CT 04/14/18 Signed Impressions: CONCLUSION: No evidence of acute abdominal or pelvic process. No masses are identified. Knee X-Ray 04/12/1822 Signed Impressions: CONCLUSION: Status post jjzjc-odd-orvo amputation without evidence of active bone loss or o bvious infection Lower Extremity MRI 04/12/18 Signed Impressions: CONCLUSION: 1. Cellulitic changes of the soft tissues/stump but no osteomyelitis. 2. Cystic changes of the marrow of the distal femur of uncertain etiology. Objective Remarks GENERAL: This is a well-nourished, well-developed patient, in no apparent distress. CARDIOVASCULAR: Normal rate and regular rhythm without murmurs, gallops, or rubs. RESPIRATORY: Good respiratory efforts. Breath sounds equal and clear to auscultation bilaterally. GASTROINTESTINAL: Abdomen soft, non-tender, non-distended. Normal active bowel sounds MUSCULOSKELETAL: Status post right BKA. Stump is bandaged. NEURO: Alert & Oriented x4 to person, place, time, situation. Moves all ext x4 PSYCH: Appropriate mood and affect. Procedures Debridement of right stump A/P Assessment and Plan Cellulitis/infected right BKA stump. Infectious disease and vascular surgery consults appreciated. MRI negative for osteomyelitis. S/p debridement 04/14. - Vancomycin/Zosyn changed to ceftriaxone per sensitivities. - follow up with vascular and ID. - pain control with a bowel regimen. Diabetes mellitus Hemoglobin A1c of 9.3%. - Sliding-scale insulin. - Monitor blood glucose. - Levemir 15 units daily. JOSE GUADALUPE Creatinine is increasing. Renal US negative for hydronephrosis. ? s/t antibiotics. - d/c vancomycin and Zosyn. - IVFs. - follow BMP. - calculate FENa. - nephrology consult. - avoid nephrotoxins. HTN Blood pressure fluctuates. - hold antihypertensives and monitor. Currently well controlled. Anemia Unsure of baseline. Hemoccult positive. - follow CBC and transfuse as needed. - Pepcid. - consider GI consult. Diarrhea Concern for C diff. CT abdomen unremarkable. - C diff PCR pending. Abdominal pain/ back pain/ shortness of breath/ acute respiratory failure The pt had an episode of the above on 04/14. Possibly a reaction to Tramadol or Rocephin. CT abdomen unremarkable. V/Q scan low probability. Initially she required 5L NC, now on room air. Trop slightly elevated at 0.07. EKG with sinus tach. - d/c Tramadol. - monitor in ICU with next dose of Rocephin. Transfer to floor if stable. - continue Benadryl, Pepcid. S/p Solumedrol. PPx: SCDs Discharge Planning Transfer to floor if stable Wayne Luis DO Apr 15, 2018 09:56
[2018-04-15] MEDS: INSULIN DETEMIR 100 UNITS/ML VIAL SQ SCH (10:28)
[2018-04-15] MEDS: cefTRIAXone INJ 2,000 MG in SODIUM CHLORIDE 0.9% INJ 100 ML IV SCH (12:15)
--- NOTE | 2018-04-15 12:58 | MB ---
cc: Dominic Ray MD DATE: 04/15/2018 REASON FOR CONSULTATION: Acute kidney injury. HISTORY OF PRESENT ILLNESS: This is a 42-year-old female with history of diabetes, hypertension, dyslipidemia and COPD. The patient has a right BKA and wears a prosthesis. The patient apparently recently moved here from [place]. There, she reports she has been followed with her primary care physician and has had ongoing proteinuria, which was attributed to diabetes. She has never followed with a transfer engineer otherwise. The patient presented here to the hospital and was admitted on 04/12/2018 after complaints of swelling and pain at the right stump at her right BKA site. She was admitted here and found to have cellulitis. The patient underwent wound debridement with vascular surgery here and was initially treated on antibiotics for the cellulitis with vancomycin and Zosyn. The patient yesterday was seen with ID and these antibiotics were deescalated down to ceftriaxone as she is growing Staph aureus that is susceptible to this. The patient was also found to have an Escherichia coli urinary tract infection and is also being followed with ID for this as well. Regarding her renal function, the patient presented with a creatinine of 1.2. Over the course of her hospital stay, the creatinine is elevated up to a level of 2.7 now. The patient received 3 liters of IV fluids with normal saline, which ended yesterday. However, there was still an ongoing rise in creatinine and nephrology was consulted for further evaluation. In addition to this, the patient had some initial constipation and was given milk of magnesia and now has had ongoing diarrhea for the last several days. At this point, the patient is resting in bed comfortably. She has no acute complaints; however, does feel somewhat fatigued. Nephrology was consulted for further evaluation of her acute renal failure. PAST MEDICAL HISTORY: Includes diabetes, hypertension, dyslipidemia, COPD. PAST SURGICAL HISTORY: Includes right BKA. The patient wears a prosthesis. Also, history of gastric bypass. MEDICATIONS AT HOME: Included NovoLog insulin, Lantus, atorvastatin., amlodipine and lisinopril 5 mg daily. ALLERGIES: INCLUDE HYDROCODONE AND APPARENTLY A VANCOMYCIN ALLERGY WHICH WAS NOTED HERE. FAMILY HISTORY: Both parents with diabetes. SOCIAL HISTORY: Negative for any alcohol, tobacco or drug use. REVIEW OF SYSTEMS: At the time of my evaluation, the patient denies any current fevers or chills. No nausea; however, has had ongoing diarrhea. No chest pains, no dizziness, no loss of consciousness. Otherwise, review of systems is negative. The patient has had ongoing pain at the right stump site and had recent debridement and her pain is improving at this point. PHYSICAL EXAMINATION: VITAL SIGNS: At time of evaluation, temperature 98.3, pulse 68, respiratory rate 17, blood pressure 132/63. GENERAL: Awake, alert, oriented, in no apparent distress. NECK: Soft, supple. CARDIAC: Regular rate and rhythm. PULMONARY: Clear to auscultation. ABDOMEN: Soft, nontender, and nondistended. EXTREMITIES: No edema. The patient with right BKA stump and dressing. LABORATORY FINDINGS: Urinalysis with greater than 500 protein and greater than 500 glucose, noted negative ketones, 75 WBCs, many bacteria. Urinary cultures revealed Escherichia coli. Wound cultures revealed Staph aureus. White count 12.9, hemoglobin 9.2, hematocrit 27.5 with platelet count of 433. Hemoglobin A1c of 9.3. ASSESSMENT AND PLAN: 1. Acute kidney injury. The patient presented with a creatinine of 1.2, which increased to a level of 2.7. She likely has acute kidney injury secondary to antibiotics with the recent exposure to vancomycin as well as Zosyn. In addition to this, the patient has had some ongoing cellulitis, which may be contributing to her acute renal injury. In addition to all of this, the patient has had ongoing diarrhea for several days and there may be an element of volume depletion here. However, she recently had 3 liters of normal saline with little improvement in her renal function otherwise. Likely multifactorial acute kidney injury, primarily suspecting antibiotic and infection etiology. Of note, her urinalysis showed more than 500 protein and 500 glucose. She does have poorly controlled diabetes with hemoglobin A1c of 9.3. Apparently in [place], the patient has been followed up with her primary care physician only and had been told she has had ongoing proteinuria. However, she has never been referred to a renal specialist otherwise, since her creatinine had always been relatively normal. At this point, we will further quantify proteinuria with a spot protein to creatinine ratio. Long-term management of this would include SARAI inhibitors, which patient is on; however, we will hold this at this current junction given her acute kidney injury. Should her renal function further stabilize, can restart SARAI inhibitors and ideally in the long-term, we will maximize SARAI inhibitor dose to help limit proteinuria. In addition, we will check a fractional excretion of sodium to assess for any prerenal versus intrinsic renal components for the acute kidney injury. I will go ahead and give her some IV fluids with half normal saline and 75 mEq of sodium bicarbonate at 50 mL per hour for maintenance. Continue to encourage p.o. intake. We will continue to closely monitor her renal function. The patient is voiding otherwise and has had 800 mL of urine output over the last 24 hours. 2. Right below-knee amputation stump cellulitis. The patient with findings of Staph, also with findings of Escherichia coli urinary tract infection. The patient is currently on ceftriaxone. Of note, she received a course of vancomycin and Zosyn, which may have contributed to her initial renal dysfunction. Continue to monitor at this point. 3. Diabetes. The patient with a hemoglobin A1c of 9.3. Continue with insulin and adjust as needed. 4. Hypertension. Blood pressure is stable. Restart SARAI inhibitors once renal function is further stabilized. 5. Anemia. The patient has a hemoglobin of 9.3 apparently, has heme positive stools. Continue to monitor and follow up with primary team. 6. Diarrhea. The patient has Clostridium difficile studies pending. Continue to monitor closely. We will give some IV fluids with bicarbonate for acidosis, which may be due to diarrhea as well as renal failure. 7. Dyspnea and abdominal pains. The patient had an acute episode of dyspnea and abdominal pains after she was given tramadol. Apparently, this is all improved. Continue to follow up with primary team. MD ARNAUD Coronel/TERESA , 12:10 PM , 12:55 PM CAROLINA
--- NOTE | 2018-04-15 14:33 | HHI.IDPN ---
Subjective Subjective Remarks is a 42 y/o CF with PMHx of DM with neuropathy, Charcots joint of Left foot. She reports prior h/o toe and leg infection needing IV antibiotics and progressing despite that needing Right BKA. She reports she is from [facility] and had surgeries locally in [place]. She also reports h/o hypertension, hyperlipidemia and COPD presents the emergency department with a 2 day history of a painful, swollen red and draining right stump. The patient is status post BKA and wears a prosthetic. She reports a crack in the rubber on her prosthetic that rubbed a hole in her skin. She saw her PCP approximately 10 days ago who gave her a prescription for clindamycin but stated that it was not infected at that time. The patient reports compliance with the clindamycin. She denies any fever/chills. She reports approx 3 days prior to admission she started having increasing redness and swelling at amputation stump site. She decided to present to the hospital. ID consulted for stump site cellulitis. Overnight events reviewed No fevers No rash no diarrhea Had I&D of abscess at the amputation stump site. Transferred to ICU for hypertension. BP meds on hold. Antibiotics Rocephin IV Lines Line sites with no e.o infection Past Medical History Past Medical History Diabetes mellitus, hypertension, hyperlipidemia COPD Past Surgical History Right BKA Gastric bypass Allergies: Coded Allergies: hydrocodone (Verified Allergy, Severe, 04/11/18) vancomycin (Verified Allergy, Severe, Hives, 04/12/18) per pt she is able to take vancomycin if she is premedicated with benadryl Objective . Vital Signs Date Time Temp Pulse Resp B/P (MAP) Pulse Ox O2 Delivery O2 Flow Rate FiO2 04/15/18 12:00 97.8 78 10 159/70 (99) 97 04/15/18 12:00 78 04/15/18 11:00 75 23 131/66 (87) 96 04/15/18 10:00 80 18 150/76 (100) 96 04/15/18 10:00 80 04/15/18 09:00 73 20 146/72 (96) 96 04/15/18 08:00 68 04/15/18 08:00 98.3 68 17 132/63 (86) 93 04/15/18 06:00 65 04/15/18 04:00 72 04/15/18 04:00 98.0 72 26 124/60 (81) 94 04/15/18 03:52 18 04/15/18 02:00 69 04/15/18 00:00 77 04/15/18 00:00 98.3 77 24 131/66 (87) 95 04/14/18 22:00 83 04/14/18 17:45 88 04/14/18 15:04 98 Nasal Cannula 5.00 04/15/18 04/15/18 04/16/18 15:00 23:00 07:00 Intake Total 1000 ml Balance 1000 ml IV Total 1000 ml . Laboratory Tests Test 04/14/18 03:33 04/14/18 13:49 04/15/18 04:13 White Blood Count 9.9 TH/MM3 5.2 TH/MM3 12.9 TH/MM3 Red Blood Count 3.35 MIL/MM3 3.88 MIL/MM3 3.39 MIL/MM3 Hemoglobin 8.9 GM/DL 10.3 GM/DL 9.2 GM/DL Hematocrit 27.5 % 31.9 % 27.5 % Mean Corpuscular Volume 82.2 FL 82.2 FL 81.1 FL Mean Corpuscular Hemoglobin 26.6 PG 26.5 PG 27.1 PG Mean Corpuscular Hemoglobin Concent 32.3 % 32.3 % 33.4 % Red Cell Distribution Width 14.0 % 14.1 % 14.0 % Platelet Count 447 TH/MM3 543 TH/MM3 433 TH/MM3 Mean Platelet Volume 8.9 FL 8.5 FL 8.8 FL Neutrophils (%) (Auto) 68.4 % 86.4 % Lymphocytes (%) (Auto) 15.2 % 9.5 % Monocytes (%) (Auto) 6.3 % 0.4 % Eosinophils (%) (Auto) 9.3 % 3.3 % Basophils (%) (Auto) 0.8 % 0.4 % Neutrophils # (Auto) 6.8 TH/MM3 4.5 TH/MM3 Lymphocytes # (Auto) 1.5 TH/MM3 0.5 TH/MM3 Monocytes # (Auto) 0.6 TH/MM3 0.0 TH/MM3 Eosinophils # (Auto) 0.9 TH/MM3 0.2 TH/MM3 Basophils # (Auto) 0.1 TH/MM3 0.0 TH/MM3 CBC Comment DIFF FINAL DIFF FINAL Differential Comment Laboratory Tests Test 04/14/18 11:33 04/14/18 13:49 04/14/18 22:26 04/15/18 01:07 Blood Urea Nitrogen 18 MG/DL Creatinine 2.65 MG/DL Random Glucose 286 MG/DL Calcium Level 8.1 MG/DL Sodium Level 137 MEQ/L Potassium Level 4.3 MEQ/L Chloride Level 109 MEQ/L Carbon Dioxide Level 17.6 MEQ/L Anion Gap 10 MEQ/L Estimat Glomerular Filtration Rate 20 ML/MIN Iron Level 25 MCG/DL Total Iron Binding Capacity 196 MCG/DL Percent Iron Saturation 12.8 % Ferritin 204 NG/ML Vitamin B12 Level 625 PG/ML Folate GREATER THAN 20.0 NG/ML Troponin I LESS THAN 0.02 NG/ML 0.07 NG/ML 0.05 NG/ML Test 04/15/18 04:13 Blood Urea Nitrogen 20 MG/DL Creatinine 2.76 MG/DL Random Glucose 252 MG/DL Calcium Level 8.0 MG/DL Sodium Level 139 MEQ/L Potassium Level 4.7 MEQ/L Chloride Level 108 MEQ/L Carbon Dioxide Level 16.9 MEQ/L Anion Gap 14 MEQ/L Estimat Glomerular Filtration Rate 19 ML/MIN Microbiology Date/Time Source Procedure Growth Status 04/14/18 10:42 Stool Stool Stool Occult Blood (JOSHUA) - Final HEMOCCULT POSITIVE Complete Imaging Last Impressions Knee X-Ray 04/12/18 0023 Signed Impressions: CONCLUSION: Status post [id number] amputation without evidence of active bone loss or o bvious infection Chest X-Ray 04/12/18 0022 Signed Impressions: CONCLUSION: Negative examination. Lower Extremity MRI 04/12/18 0000 Signed Impressions: CONCLUSION: 1. Cellulitic changes of the soft tissues/stump but no osteomyelitis. 2. Cystic changes of the marrow of the distal femur of uncertain etiology. Physical Exam GENERAL: Obese, well-developed patient, in no apparent distress. SKIN: No rashes, ecchymoses or lesions. Cool and dry. HEAD: Atraumatic. Normocephalic. No temporal or scalp tenderness. EYES: Pupils equal round and reactive. Extraocular motions intact. No scleral icterus. No injection or drainage. ENT: Nose without bleeding, purulent drainage or septal hematoma. Throat without erythema, tonsillar hypertrophy or exudate. Uvula midline. Airway patent. NECK: Trachea midline. Supple, nontender, no meningeal signs. CARDIOVASCULAR: RHS audible. RESPIRATORY: Clear to auscultation. Breath sounds equal bilaterally. No wheezes , rales, or rhonchi. GASTROINTESTINAL: Abdomen soft, non-tender, nondistended. MUSCULOSKELETAL: rt BKA stump site with post op dressing. Left foot with Charcot like changes. NEUROLOGICAL: Awake and alert. Non focal Psych cooperative IV line sites with no e.o infection Assessment & Plan Remarks Right BKA amputation site infection with possible abscess, underlying osteomyelitis. E.coli in urine: asymptomatic. DM with Neuropathy Left foot with Charcot changes. Acute renal failure: ? acute on chronic. Elevated CRP and ESR. Recs Continue Rocephin IV. Uo good. Follow Cr. Follow cultures. Follow clinically. [email or web address] Ventura: follow Cr. Will likely need IV antibiotics on discharge, await further discussion with to see if bone involvement. Ivelisse Narayan MD Apr 15, 2018 14:33
[2018-04-15] MEDS: SODIUM BICARBONATE 8.4% INJ 75 MEQ in SODIUM CHLOR 0.45% 1000 ML INJ 1,000 ML IV SCH (14:39)
--- NOTE | 2018-04-15 15:26 | EKG ---
Date Performed: 04/14/2018 Time Performed: 13:59:36 PTAGE: 42 years EKG: Sinus tachycardia. Poor R wave progression - probable normal variant Borderline ECG PREVIOUS TRACING : 04/12/2018 07.51 Since the previous tracing, no significant change noted DOCTOR: Uriel Emanuel Interpretating Date/Time 04/15/2018 15:25:21
[2018-04-16] VITALS (8 sets, daily range): BP systolic 140–179; BP diastolic 66–81; PULSE 64–85; RESP 16–17; TEMP 97.5–97.9; O2SAT 92–98
[2018-04-16] MEDS: FAMOTIDINE 20 MG/2 ML VIAL IV PUSH SCH
[2018-04-16] MEDS: diphenhydrAMINE HCL 50 MG/ML VIAL IV PUSH SCH ×2 (04:00→14:28)
[2018-04-16] MEDS: SODIUM BICARBONATE 8.4% INJ 75 MEQ in SODIUM CHLOR 0.45% 1000 ML INJ 1,000 ML IV SCH ×2 (04:14→17:30)
[2018-04-16] MEDS: ACETAMINOPHEN 325 MG TAB PO PRN ×3 (05:33→17:29)
[2018-04-16] MEDS: MORPHINE SULFATE 4 MG/ML INJ IV PRN ×2 (05:59)
[2018-04-16 06:44] LABS: AUTOMATED NEUTROPHIL # 7.9 TH/MM3 (1.8-7.7); BASOPHIL % 0.4 % (0.0-2.0); EOSINOPHIL # 0.2 TH/MM3 (0-0.4); EOSINOPHIL % 2.3 % (0.0-4.0); HEMATOCRIT 25.9 % (35.0-46.0); HEMOGLOBIN 8.6 GM/DL (11.6-15.3); LYMPH % 10.4 % (9.0-44.0); MEAN CELL VOLUME 81.2 FL (80.0-100.0); MEAN CORPUSCULAR HEMOGLOBIN 26.9 PG (27.0-34.0); MEAN CORPUSCULAR HGB CONC 33.1 % (32.0-36.0); MONO % 5.1 % (0.0-8.0); MONOCYTE # 0.5 TH/MM3 (0-0.9); NEUT % 81.8 % (16.0-70.0); PLATELET COUNT 428 TH/MM3 (150-450); RED BLOOD COUNT 3.19 MIL/MM3 (4.00-5.30); RED CELL DISTRIBUTION WIDTH 13.8 % (11.6-17.2); WHITE BLOOD COUNT 9.6 TH/MM3 (4.0-11.0)
[2018-04-16 07:12] LABS: ALBUMIN 1.9 GM/DL (3.4-5.0); ALT (GPT) 46 U/L (10-53); AST (GOT) 18 U/L (15-37); BICARBONATE 18.8 MEQ/L (21.0-32.0); BLOOD UREA NITROGEN 29 MG/DL (7-18); CHLORIDE 110 MEQ/L (98-107); CREATININE 2.34 MG/DL (0.50-1.00); GLOMERULAR FILTRATION RATE 23 ML/MIN (>89); GLUCOSE,RANDOM 216 MG/DL (74-106); PHOSPHORUS 3.1 MG/DL (2.5-4.9); SODIUM (NA) 139 MEQ/L (136-145)
[2018-04-16 07:14] LABS: ALKALINE PHOSPHATASE 332 U/L (45-117); TOTAL BILIRUBIN ADULT 0.2 MG/DL (0.2-1.0); TOTAL PROTEIN 6.4 GM/DL (6.4-8.2)
[2018-04-16] MEDS: INSULIN ASPART SUPPLEMENTAL SCALE SQ SCH ×4 (08:00→22:01)
[2018-04-16] MEDS: SODIUM CHLORIDE 0.9% FLUSH 10 ML FLUSH IV FLUSH SCH ×2 (08:45→20:31)
[2018-04-16] MEDS: DOCUSATE SODIUM 50 MG/SENNA 8.6 MG TAB PO SCH ×2 (08:45→20:32)
[2018-04-16] MEDS: POLYETHYLENE GLYCOL 17 GM PKG PO SCH (08:51)
[2018-04-16] MEDS: NYSTATIN 100,000 U/GM PWD 15 GM BTL TOPICAL SCH ×2 (08:52→20:32)
[2018-04-16] MEDS: ATORVASTATIN 80 MG TAB PO SCH (08:52)
[2018-04-16] MEDS: INSULIN DETEMIR 100 UNITS/ML VIAL SQ SCH ×2 (09:00→12:23)
[2018-04-16] MEDS: ONDANSETRON ODT 4 MG TAB PO PRN (09:49)
[2018-04-16] MEDS: cefTRIAXone INJ 2,000 MG in SODIUM CHLORIDE 0.9% INJ 100 ML IV SCH (11:26)
--- NOTE | 2018-04-16 14:00 | HHI.PR ---
Subjective Remarks Patient says she is feeling all right. Reports pain is controlled. Denies any chest pain or shortness of breath. She requests to be placed on a diabetic diet. Objective Vital Signs Date Time Temp Pulse Resp B/P (MAP) Pulse Ox O2 Delivery O2 Flow Rate FiO2 04/16/18 12:00 97.5 81 17 179/81 (113) 97 04/16/18 10:55 20 04/16/18 08:00 97.5 72 17 145/66 (92) 93 04/16/18 04:00 97.5 67 16 156/76 (102) 93 04/16/18 04:00 64 04/16/18 00:00 70 04/16/18 00:00 97.7 69 16 140/72 (94) 95 04/15/18 23:00 73 04/15/18 22:55 97.2 68 16 145/71 (95) 95 04/15/18 20:14 24 04/15/18 20:00 98.0 69 17 151/77 (101) 96 04/15/18 20:00 69 04/15/18 16:00 97.6 64 10 134/69 (90) 92 04/15/18 16:00 64 04/15/18 15:00 79 25 146/66 (92) 95 04/15/18 14:00 79 21 142/72 (95) 97 04/15/18 14:00 82 I/O 04/15/18 04/15/18 04/15/18 04/16/18 04/16/18 04/16/18 07:00 15:00 23:00 07:00 15:00 23:00 Intake Total 480 ml 1100 ml 1258 ml 1040 ml Output Total 1500 ml Balance 480 ml 1100 ml -242 ml 1040 ml Intake Oral 480 ml 1000 ml 240 ml IV Total 1100 ml 258 ml 800 ml Output Urine Total 1500 ml # Voids 2 1 # Bowel Movements 2 2 0 Result Diagram: 04/16/1852804/16/18528 Objective Remarks GENERAL: Patient sitting up in bed. Appears comfortable. SKIN: Warm and dry. HEAD: Normocephalic. EYES: No scleral icterus. No injection or drainage. NECK: Supple, trachea midline. No JVD. CARDIOVASCULAR: Regular rate and rhythm without murmurs, gallops, or rubs. RESPIRATORY: Breath sounds equal bilaterally. No accessory muscle use. GASTROINTESTINAL: Abdomen soft, non-tender, nondistended. MUSCULOSKELETAL: No cyanosis, or edema. Wound stump seen during dressing change , appears to be draining serosanguineous fluid at the borders. BACK: Nontender without obvious deformity. No CVA tenderness. A/P Assessment and Plan //Cellulitis/infected right BKA stump. Infectious disease and vascular surgery consults appreciated. MRI negative for osteomyelitis. S/p debridement 04/14. - Vancomycin/Zosyn changed to ceftriaxone per sensitivities. - follow up with vascular and ID. - pain control with a bowel regimen. = Continue antibiotics as per ID. Wound care per vascular surgery. //Diabetes mellitus Hemoglobin A1c of 9.3%. - Sliding-scale insulin. - Monitor blood glucose. - Levemir 15 units daily. = 04/16. With hyperglycemia in the 200s. Will increase sliding scale to moderate. Add diabetic diet //JOSE GUADALUPE Creatinine is increasing. Renal US negative for hydronephrosis. ? s/t antibiotics. - d/c vancomycin and Zosyn. - IVFs. - follow BMP. - calculate FENa. - nephrology consult. - avoid nephrotoxins. = We will decrease IV fluids to 45 mL/h due to his trace peripheral edema. Continue to monitor. //HTN Blood pressure fluctuates. - hold antihypertensives and monitor. Currently well controlled. //Anemia Unsure of baseline. Hemoccult positive. - follow CBC and transfuse as needed. - Pepcid. -Ferritin 204, low TIBC, likely anemia of inflammation versus chronic renal disease = He will remain 0.6. Relatively stable. Continue to monitor. //Diarrhea Concern for C diff. CT abdomen unremarkable. - C diff PCR negative = Likely secondary to antibiotics. //Abdominal pain/ back pain/ shortness of breath/ acute respiratory failure The pt had an episode of the above on 04/14. Possibly a reaction to Tramadol or Rocephin. CT abdomen unremarkable. V/Q scan low probability. Initially she required 5L NC, now on room air. Trop slightly elevated at 0.07. EKG with sinus tach. - d/c Tramadol. - monitor in ICU with next dose of Rocephin. Transfer to floor if stable. -Stable. Continue Benadryl, Pepcid. S/p Solumedrol. Discharge Planning Charge when cleared by ID and vascular surgery. Shade Miranda MD Apr 16, 2018 14:00
[2018-04-16] MEDS ORDERED: GLUCAGON 1 MG/ML VIAL OTHER PRN (14:15)
[2018-04-16] MEDS ORDERED: DEXTROSE 50% IN WATER 50 ML VIAL(D50) IV PUSH PRN (14:15)
--- NOTE | 2018-04-16 17:46 | HHI.NPPN ---
Subjective Additional Remarks No acute complaints Objective Data Data Vital Signs Date Time Temp Pulse Resp B/P (MAP) Pulse Ox O2 Delivery O2 Flow Rate FiO2 04/16/18 16:00 97.9 85 17 143/71 (95) 92 04/16/18 12:00 97.5 81 17 179/81 (113) 97 04/16/18 10:55 20 04/16/18 08:00 97.5 72 17 145/66 (92) 93 04/16/18 04:00 97.5 67 16 156/76 (102) 93 04/16/18 04:00 64 04/16/18 00:00 70 04/16/18 00:00 97.7 69 16 140/72 (94) 95 04/15/18 23:00 73 04/15/18 22:55 97.2 68 16 145/71 (95) 95 04/15/18 20:14 24 04/15/18 20:00 98.0 69 17 151/77 (101) 96 04/15/18 20:00 69 -: 04/16/18 0529 04/16/18 0529 Physical Exam General Appearance: Well Developed, Well Nourished, No Acute Distress Eyes Eye Exam: Pupils Equal Throat Throat Exam: Oral Mucosa [place] & Moist Neck Neck Exam: Neck Supple Pulmonary Resp Exam: Decreased Bases, Diminished Breath Sounds Cardiology CV Exam: Regular, Normal Sinus Rhythm Gastrointestinal/Abdomen GI Exam: Soft, Non-Tender, Bowel Sounds Present Integumentary Skin Exam: Warm Extremeties Extremities Exam: Trace Edema Neurologic Neuro Exam: Alert, Awake, Oriented, Speech Clear Assessment/Plan Problem List: (1) JOSE GUADALUPE (acute kidney injury) ICD Codes: N17.9 - Acute kidney failure, unspecified Plan: Creatinine 1.2 on admission. JOSE GUADALUPE with creatinine increase to 2.7 - improved to 2.3 overnight on IVFs Possible non-oliguric ATN likely due to vancomycin exposure, cellulitis. FeNa 1.3% Also possible component of volume depletion with recent diarrhea. Continue IVFs for now with 1/2NS + 75meq NaHCO3 at 50cc/hour. Acidosis due to JOSE GUADALUPE and GI losses from diarrhea - improving. If stable tomorrow and tolerating PO diet, consider to D/C IVFs. Underlying history of proteinuria followed with PCP in [place] Likely DM nephropathy with A1C 9.3 Spot testing with 2.5 g/day proteinuria. Should her renal function further stabilize, can restart SARAI inhibitors eventually maximize dose as possible (2) Amputation stump infection ICD Codes: T87.40 - Infection of amputation stump, unspecified extremity Status: Acute Plan: Staph aureus - follow with ID. The patient is currently on ceftriaxone. Of note, she received a course of vancomycin and Zosyn, which may have contributed to her initial renal dysfunction. Continue to monitor at this point. (3) UTI (urinary tract infection) ICD Codes: N39.0 - Urinary tract infection, site not specified Status: Acute Plan: follow with ID, on ceftriaxone (4) Diabetes ICD Codes: E11.9 - Type 2 diabetes mellitus without complications Plan: hemoglobin A1c of 9.3. Continue with insulin and adjust as needed. Problem Qualifiers (1) UTI (urinary tract infection): Qualified Codes: N39.0 - Urinary tract infection, site not specified; R31.9 - Hematuria, unspecified Dominic Ray MD Apr 16, 2018 17:46
--- NOTE | 2018-04-16 18:29 | HHI.IDPN ---
Subjective Subjective Remarks is a 42 y/o CF with PMHx of DM with neuropathy, Charcots joint of Left foot. She reports prior h/o toe and leg infection needing IV antibiotics and progressing despite that needing Right BKA. She reports she is from [facility] and had surgeries locally in [place]. She also reports h/o hypertension, hyperlipidemia and COPD presents the emergency department with a 2 day history of a painful, swollen red and draining right stump. The patient is status post BKA and wears a prosthetic. She reports a crack in the rubber on her prosthetic that rubbed a hole in her skin. She saw her PCP approximately 10 days ago who gave her a prescription for clindamycin but stated that it was not infected at that time. The patient reports compliance with the clindamycin. She denies any fever/chills. She reports approx 3 days prior to admission she started having increasing redness and swelling at amputation stump site. She decided to present to the hospital. ID consulted for stump site cellulitis. Overnight events reviewed No fevers No rash no diarrhea Had I&D of abscess at the amputation stump site. Transferred back to the floor. Reports she had several episodes of vomiting. When discussed with patient's nurse she reports that patient ate all her meals and did not witness any vomiting. Antibiotics Rocephin IV Lines Line sites with no e.o infection Past Medical History Past Medical History Diabetes mellitus, hypertension, hyperlipidemia COPD Past Surgical History Right BKA Gastric bypass Allergies: Coded Allergies: hydrocodone (Verified Allergy, Severe, 04/11/18) vancomycin (Verified Allergy, Severe, Hives, 04/12/18) per pt she is able to take vancomycin if she is premedicated with benadryl Objective . Vital Signs Date Time Temp Pulse Resp B/P (MAP) Pulse Ox O2 Delivery O2 Flow Rate FiO2 04/16/18 16:00 97.9 85 17 143/71 (95) 92 04/16/18 12:00 97.5 81 17 179/81 (113) 97 04/16/18 10:55 20 04/16/18 08:00 97.5 72 17 145/66 (92) 93 04/16/18 04:00 97.5 67 16 156/76 (102) 93 04/16/18 04:00 64 04/16/18 00:00 70 04/16/18 00:00 97.7 69 16 140/72 (94) 95 04/15/18 23:00 73 04/15/18 22:55 97.2 68 16 145/71 (95) 95 04/15/18 20:14 24 04/15/18 20:00 98.0 69 17 151/77 (101) 96 04/15/18 20:00 69 04/16/18 04/16/18 04/17/18 14:59 22:59 06:59 Intake Total 1440 ml Balance 1440 ml Intake Oral 1440 ml # Voids 8 # Bowel Movements 1 . Laboratory Tests Test 04/15/18 04:13 04/16/18 05:29 White Blood Count 12.9 TH/MM3 9.6 TH/MM3 Red Blood Count 3.39 MIL/MM3 3.19 MIL/MM3 Hemoglobin 9.2 GM/DL 8.6 GM/DL Hematocrit 27.5 % 25.9 % Mean Corpuscular Volume 81.1 FL 81.2 FL Mean Corpuscular Hemoglobin 27.1 PG 26.9 PG Mean Corpuscular Hemoglobin Concent 33.4 % 33.1 % Red Cell Distribution Width 14.0 % 13.8 % Platelet Count 433 TH/MM3 428 TH/MM3 Mean Platelet Volume 8.8 FL 9.0 FL Neutrophils (%) (Auto) 81.8 % Lymphocytes (%) (Auto) 10.4 % Monocytes (%) (Auto) 5.1 % Eosinophils (%) (Auto) 2.3 % Basophils (%) (Auto) 0.4 % Neutrophils # (Auto) 7.9 TH/MM3 Lymphocytes # (Auto) 1.0 TH/MM3 Monocytes # (Auto) 0.5 TH/MM3 Eosinophils # (Auto) 0.2 TH/MM3 Basophils # (Auto) 0.0 TH/MM3 CBC Comment DIFF FINAL Differential Comment Laboratory Tests Test 04/14/18 22:26 04/15/18 01:07 04/15/18 04:13 04/16/18 05:29 Troponin I 0.07 NG/ML 0.05 NG/ML Blood Urea Nitrogen 20 MG/DL 29 MG/DL Creatinine 2.76 MG/DL 2.34 MG/DL Random Glucose 252 MG/DL 216 MG/DL Calcium Level 8.0 MG/DL 8.0 MG/DL Sodium Level 139 MEQ/L 139 MEQ/L Potassium Level 4.7 MEQ/L 4.1 MEQ/L Chloride Level 108 MEQ/L 110 MEQ/L Carbon Dioxide Level 16.9 MEQ/L 18.8 MEQ/L Anion Gap 14 MEQ/L 10 MEQ/L Estimat Glomerular Filtration Rate 19 ML/MIN 23 ML/MIN Total Protein 6.4 GM/DL Albumin 1.9 GM/DL Phosphorus Level 3.1 MG/DL Magnesium Level 2.0 MG/DL Alkaline Phosphatase 332 U/L Aspartate Amino Transf (AST/SGOT) 18 U/L Alanine Aminotransferase (ALT/SGPT) 46 U/L Total Bilirubin 0.2 MG/DL Microbiology Date/Time Source Procedure Growth Status 04/14/18 10:42 Stool Stool Stool Occult Blood (JOSHUA) - Final HEMOCCULT POSITIVE Complete Imaging Last Impressions Knee X-Ray 04/12/18 0023 Signed Impressions: CONCLUSION: Status post [id number] amputation without evidence of active bone loss or o bvious infection Chest X-Ray 04/12/18 0022 Signed Impressions: CONCLUSION: Negative examination. Lower Extremity MRI 04/12/18 0000 Signed Impressions: CONCLUSION: 1. Cellulitic changes of the soft tissues/stump but no osteomyelitis. 2. Cystic changes of the marrow of the distal femur of uncertain etiology. Physical Exam GENERAL: Obese, well-developed patient, in no apparent distress. SKIN: No rashes, ecchymoses or lesions. Cool and dry. HEAD: Atraumatic. Normocephalic. No temporal or scalp tenderness. EYES: Pupils equal round and reactive. Extraocular motions intact. No scleral icterus. No injection or drainage. ENT: Nose without bleeding, purulent drainage or septal hematoma. Throat without erythema, tonsillar hypertrophy or exudate. Uvula midline. Airway patent. NECK: Trachea midline. Supple, nontender, no meningeal signs. CARDIOVASCULAR: RHS audible. RESPIRATORY: Clear to auscultation. Breath sounds equal bilaterally. No wheezes , rales, or rhonchi. GASTROINTESTINAL: Abdomen soft, non-tender, nondistended. MUSCULOSKELETAL: rt BKA stump site with sutures in place. There were areas where there was some brownish discharge like old blood visible. No erythema and duration at the stump site. NEUROLOGICAL: Awake and alert. Non focal Psych cooperative IV line sites with no e.o infection Assessment & Plan Remarks Right BKA amputation site infection with possible abscess, underlying osteomyelitis. E.coli in urine: asymptomatic. DM with Neuropathy Left foot with Charcot changes. Acute renal failure: ? acute on chronic. Elevated CRP and ESR. Recs Continue Rocephin IV. RN notified vascular surgery about the wound that patient was very concerned about recurrent infection. Vascular surgery will see the patient in the a.m. Uo good. Follow Cr. Follow cultures. Follow clinically. Review of Dr. Jean-Baptiste's note it appears that he wants patient to be treated with oral antibiotics for cellulitis but given the patient's current status of the wound will wait till he reassesses the wound tomorrow to provide further recommendations. Ivelisse Narayan MD Apr 16, 2018 18:29
[2018-04-16] MEDS: FAMOTIDINE 20 MG TAB PO SCH (20:31)
[2018-04-17] VITALS: BP 145/73; PULSE 77; RESP 16; TEMP 97.5; O2SAT 97
[2018-04-17 00:08] VITALS: PULSE 80
[2018-04-17] MEDS: ACETAMINOPHEN 325 MG TAB PO PRN (00:16)
[2018-04-17 04:00] VITALS: BP 139/74; PULSE 70; RESP 16; TEMP 97.7; O2SAT 98
[2018-04-17] MEDS: diphenhydrAMINE HCL 50 MG/ML VIAL IV PUSH SCH ×2 (05:11→16:00)
[2018-04-17 07:40] LABS: AUTOMATED NEUTROPHIL # 6.3 TH/MM3 (1.8-7.7); BASOPHIL # 0.1 TH/MM3 (0-0.2); BASOPHIL % 0.7 % (0.0-2.0); EOSINOPHIL # 0.3 TH/MM3 (0-0.4); EOSINOPHIL % 3.8 % (0.0-4.0); HEMATOCRIT 24.5 % (35.0-46.0); LYMPH % 13.1 % (9.0-44.0); LYMPHOCYTE # 1.1 TH/MM3 (1.0-4.8); MEAN CELL VOLUME 80.6 FL (80.0-100.0); MEAN CORPUSCULAR HEMOGLOBIN 26.4 PG (27.0-34.0); MEAN CORPUSCULAR HGB CONC 32.7 % (32.0-36.0); MEAN PLATELET VOLUME 8.9 FL (7.0-11.0); MONO % 8.6 % (0.0-8.0); MONOCYTE # 0.7 TH/MM3 (0-0.9); NEUT % 73.8 % (16.0-70.0); PLATELET COUNT 399 TH/MM3 (150-450); RED BLOOD COUNT 3.03 MIL/MM3 (4.00-5.30); RED CELL DISTRIBUTION WIDTH 14.1 % (11.6-17.2); WHITE BLOOD COUNT 8.5 TH/MM3 (4.0-11.0)
[2018-04-17 08:00] VITALS: BP 168/84; PULSE 78; RESP 16; TEMP 97.8; O2SAT 93
[2018-04-17] MEDS: INSULIN ASPART SUPPLEMENTAL SCALE SQ SCH ×2 (08:00→12:00)
[2018-04-17 08:02] LABS: ALBUMIN 1.8 GM/DL (3.4-5.0); BICARBONATE 17.9 MEQ/L (21.0-32.0); CALCIUM 7.8 MG/DL (8.5-10.1); CREATININE 1.91 MG/DL (0.50-1.00); MAGNESIUM 2.1 MG/DL (1.5-2.5)
--- NOTE | 2018-04-17 08:02 | PD.VS.PN ---
Subjective POD #: 4 Procedure(s): R BKA debridement and closure Subjective/Hospital Course pain controlled, resting comfortably Objective Vitals/I&O Date Time Temp Pulse Resp B/P (MAP) Pulse Ox O2 Delivery O2 Flow Rate FiO2 04/17/18 04:00 97.7 70 16 139/74 (95) 98 04/17/18 00:08 80 04/17/18 00:00 97.5 77 16 145/73 (97) 97 04/16/18 21:30 98 04/16/18 20:06 75 04/16/18 20:00 97.7 79 16 156/77 (103) 98 04/16/18 18:30 18 04/16/18 16:00 97.9 85 17 143/71 (95) 92 04/16/18 12:00 97.5 81 17 179/81 (113) 97 04/17/18 04/17/18 04/17/18 07:00 15:00 23:00 Intake Total 240 ml Balance 240 ml Exam: R BKA wound looks good - lateral aspect no surrounding erythema serous drainage Laboratory Laboratory Tests Test 04/17/18 06:00 White Blood Count 8.5 Red Blood Count 3.03 Hemoglobin 8.0 Hematocrit 24.5 Mean Corpuscular Volume 80.6 Mean Corpuscular Hemoglobin 26.4 Mean Corpuscular Hemoglobin Concent 32.7 Red Cell Distribution Width 14.1 Platelet Count 399 Mean Platelet Volume 8.9 Neutrophils (%) (Auto) 73.8 Lymphocytes (%) (Auto) 13.1 Monocytes (%) (Auto) 8.6 Eosinophils (%) (Auto) 3.8 Basophils (%) (Auto) 0.7 Neutrophils # (Auto) 6.3 Lymphocytes # (Auto) 1.1 Monocytes # (Auto) 0.7 Eosinophils # (Auto) 0.3 Basophils # (Auto) 0.1 CBC Comment DIFF FINAL Differential Comment Date/Time Source Procedure Growth Status 04/12/18 01:10 Blood Peripheral Aerobic Blood Culture - Preliminary NO GROWTH IN 4 DAYS Resulted 04/12/18 01:10 Blood Peripheral Anaerobic Blood Culture - Preliminary NO GROWTH IN 4 DAYS Resulted 04/14/18 10:42 Stool Stool Stool Occult Blood (JOSHUA) - Final HEMOCCULT POSITIVE Complete 04/12/18 02:30 Urine Random Urine Urine Culture - Final Escherichia Coli Complete 04/12/18 01:00 Wound Leg Gram Stain - Final Complete 04/12/18 01:00 Wound Culture - Final Staphylococcus Aureus Complete Assessment and Plan Plan POD#4 s/p R BKA debridement and closure 1. BID dressing changes and SARAI wrap- have consulted wound care team for recs 2. Will need outpt wound care f/u 3. Ok to complete 7d of oral antibiotics for cellulitis 4. ok to d/c today Nathanael Jean-Baptiste MD Apr 17, 2018 08:01
[2018-04-17 08:03] LABS: PHOSPHORUS 3.6 MG/DL (2.5-4.9)
[2018-04-17] MEDS: INSULIN DETEMIR 100 UNITS/ML VIAL SQ SCH (08:21)
[2018-04-17] MEDS: POLYETHYLENE GLYCOL 17 GM PKG PO SCH (08:22)
[2018-04-17] MEDS: NYSTATIN 100,000 U/GM PWD 15 GM BTL TOPICAL SCH (08:22)
[2018-04-17] MEDS: FAMOTIDINE 20 MG TAB PO SCH (08:22)
[2018-04-17] MEDS: DOCUSATE SODIUM 50 MG/SENNA 8.6 MG TAB PO SCH (08:22)
[2018-04-17] MEDS: ATORVASTATIN 80 MG TAB PO SCH (08:22)
[2018-04-17] MEDS: SODIUM CHLORIDE 0.9% FLUSH 10 ML FLUSH IV FLUSH SCH (08:23)
[2018-04-17] MEDS ORDERED: OXYC1TAB63 PO (08:48)
[2018-04-17] MEDS ORDERED: CEPH-460 PO (08:52)
[2018-04-17] MEDS ORDERED: WHEEMIS3 (08:53)
[2018-04-17 09:27] VITALS: O2SAT 97
[2018-04-17] MEDS ORDERED: ONDA4TAB7 SL (11:02)
[2018-04-17] MEDS ORDERED: SODI325T PO (11:05)
--- NOTE | 2018-04-17 11:11 | HHI.PR ---
Subjective Remarks Patient reports neck stiffness she feels which is secondary to the bed. Says she is getting horrible sleep in the hospital feels she would sleep well at home. Denies any chest pain or shortness of breath. She did have some nausea yesterday which has resolved. Positive bowel movement. Reports pain is controlled. Objective Vital Signs Date Time Temp Pulse Resp B/P (MAP) Pulse Ox O2 Delivery O2 Flow Rate FiO2 04/17/18 09:27 97 21 04/17/18 04:00 97.7 70 16 139/74 (95) 98 04/17/18 00:08 80 04/17/18 00:00 97.5 77 16 145/73 (97) 97 04/16/18 21:30 98 04/16/18 20:06 75 04/16/18 20:00 97.7 79 16 156/77 (103) 98 04/16/18 18:30 18 04/16/18 16:00 97.9 85 17 143/71 (95) 92 04/16/18 12:00 97.5 81 17 179/81 (113) 97 I/O 04/16/18 04/16/18 04/16/18 04/17/18 04/17/18 04/17/18 07:00 15:00 23:00 07:00 15:00 23:00 Intake Total 1040 ml 100 ml 1440 ml 240 ml Balance 1040 ml 100 ml 1440 ml 240 ml Intake Oral 240 ml 1440 ml 240 ml IV Total 800 ml 100 ml # Voids 1 8 1 # Bowel Movements 0 1 0 Result Diagram: 04/17/18 0600 04/17/18 0600 Objective Remarks GENERAL: Patient sitting up in bed. Appears comfortable. Alert and oriented 3. SKIN: Warm and dry. HEAD: Normocephalic. EYES: No scleral icterus. No injection or drainage. NECK: Supple, trachea midline. No JVD. CARDIOVASCULAR: Regular rate and rhythm without murmurs, gallops, or rubs. RESPIRATORY: Breath sounds equal bilaterally. No accessory muscle use. GASTROINTESTINAL: Abdomen soft, non-tender, nondistended. MUSCULOSKELETAL: No cyanosis, or edema. Wound stump visualized with no surrounding erythema. BACK: Nontender without obvious deformity. No CVA tenderness. A/P Assessment and Plan //Cellulitis/infected right BKA stump. Infectious disease and vascular surgery consults appreciated. MRI negative for osteomyelitis. S/p debridement 04/14. - Vancomycin/Zosyn changed to ceftriaxone per sensitivities. - follow up with vascular and ID. - pain control with a bowel regimen. = Patient cleared for discharge by vascular with p.o. antibiotics. Discussed with infectious disease. Discharge home on Keflex. Follow-up with wound care as outpatient. //Diabetes mellitus Hemoglobin A1c of 9.3%. - Sliding-scale insulin. - Monitor blood glucose. - Levemir 15 units daily. = 04/16. With hyperglycemia in the 200s. Will increase sliding scale to moderate. Add diabetic diet = 04/17. Blood sugars improved on current regimen. //JOSE GUADALUPE Creatinine is increasing. Renal US negative for hydronephrosis. ? s/t antibiotics. - d/c vancomycin and Zosyn. - IVFs. - follow BMP. - calculate FENa. - nephrology consult. - avoid nephrotoxins. = Much improved. Hold off on SARAI inhibitor for now. Follow-up with nephrology as outpatient. //HTN Blood pressure fluctuates. - hold antihypertensives and monitor. Currently well controlled. //Anemia Unsure of baseline. Hemoccult positive. - follow CBC and transfuse as needed. - Pepcid. -Ferritin 204, low TIBC, likely anemia of inflammation versus chronic renal disease = He will remain 0.6. Relatively stable. Continue to monitor. //Diarrhea Concern for C diff. CT abdomen unremarkable. - C diff PCR negative = Improved. Likely secondary to antibiotics. //Abdominal pain/ back pain/ shortness of breath/ acute respiratory failure The pt had an episode of the above on 04/14. Possibly a reaction to Tramadol or Rocephin. CT abdomen unremarkable. V/Q scan low probability. Initially she required 5L NC, now on room air. Trop slightly elevated at 0.07. EKG with sinus tach. - d/c Tramadol. - monitor in ICU with next dose of Rocephin. Transfer to floor if stable. -Resolved. Patient says she snores at night, not used to sleeping on her back in the hospital. Suspect it was likely an exacerbation of sleep apnea Discharge Planning Discharge when cleared by ID and vascular surgery. Shade Miranda MD Apr 17, 2018 11:11
--- NOTE | 2018-04-17 11:15 | HHI.DS ---
Discharge Summary Admission Date Apr 12, 2018 at 02:22 Discharge Date: Apr 17, 2018 Admitting Diagnosis Right stump infection, cp r/o acs (1) Amputation stump infection ICD Code: T87.40 - Infection of amputation stump, unspecified extremity Status: Acute (2) JOSE GUADALUPE (acute kidney injury) ICD Code: N17.9 - Acute kidney failure, unspecified (3) UTI (urinary tract infection) ICD Code: N39.0 - Urinary tract infection, site not specified Status: Acute Procedures Debridement of right stump Brief History - From Admission 42-year-old female with a past medical history significant for diabetes mellitus , hypertension, hyperlipidemia and COPD presents the emergency department with a 2 day history of a painful, swollen red and draining right stump. The patient is status post BKA and wears a prosthetic. She reports a crack in the rubber on her prosthetic that rubbed a hole in her skin. She saw her PCP approximately 10 days ago who gave her a prescription for clindamycin but stated that it was not infected at that time. The patient reports compliance with the clindamycin. She denies any fever/chills. Additionally, the patient complains of chest pain that started this evening. She endorses an associated shortness of breath. She states that the chest pain is substernal and intermittent. She denies any abdominal pain. No nausea/vomiting/diarrhea. No lateralizing signs/symptoms. CBC/BMP: 04/17/18 0600 04/17/18 0600 Significant Findings Laboratory Tests Test 04/14/18 11:33 04/14/18 13:39 04/14/18 13:49 04/14/18 22:26 Creatinine 2.65 MG/DL (0.50-1.00) Random Glucose 286 MG/DL (74-106) Calcium Level 8.1 MG/DL (8.5-10.1) Chloride Level 109 MEQ/L (98-107) Carbon Dioxide Level 17.6 MEQ/L (21.0-32.0) Estimat Glomerular Filtration Rate 20 ML/MIN (>89) Iron Level 25 MCG/DL (50-170) Total Iron Binding Capacity 196 MCG/DL (250-450) Percent Iron Saturation 12.8 % (20-50) Folate GREATER THAN 20.0 NG/ML Blood Gas HCO3 13 mmol/L (22-26) Blood Gas Base Excess -11.8 mmol/L (-2-2) Blood Gas Oxygen Saturation 84 % (90-100) Arterial Blood pH 7.32 (7.380-7.420) Arterial Blood Partial Pressure CO2 27 mmHg (38-42) Arterial Blood Partial Pressure O2 56 mmHg (61-120) Blood Gas Hemoglobin 10.6 G/DL (12.0-16.0) Red Blood Count 3.88 MIL/MM3 (4.00-5.30) Hemoglobin 10.3 GM/DL (11.6-15.3) Hematocrit 31.9 % (35.0-46.0) Mean Corpuscular Hemoglobin 26.5 PG (27.0-34.0) Platelet Count 543 TH/MM3 (150-450) Neutrophils (%) (Auto) 86.4 % (16.0-70.0) Lymphocytes # (Auto) 0.5 TH/MM3 (1.0-4.8) Troponin I LESS THAN 0.02 NG/ML 0.07 NG/ML (0.02-0.05) Test 04/15/18 01:07 04/15/18 04:13 04/15/18 08:30 04/15/18 18:00 White Blood Count 12.9 TH/MM3 (4.0-11.0) Red Blood Count 3.39 MIL/MM3 (4.00-5.30) Hemoglobin 9.2 GM/DL (11.6-15.3) Hematocrit 27.5 % (35.0-46.0) Blood Urea Nitrogen 20 MG/DL (7-18) Creatinine 2.76 MG/DL (0.50-1.00) Random Glucose 252 MG/DL (74-106) Calcium Level 8.0 MG/DL (8.5-10.1) Chloride Level 108 MEQ/L (98-107) Carbon Dioxide Level 16.9 MEQ/L (21.0-32.0) Estimat Glomerular Filtration Rate 19 ML/MIN (>89) Urine Random Total Protein 165 MG/DL (0-11.8) Urine Protein/Creatinine Ratio 2.50 (0.00-0.14) Test 04/16/18 05:29 6/25/18 06:00 Red Blood Count 3.19 MIL/MM3 (4.00-5.30) 3.03 MIL/MM3 (4.00-5.30) Hemoglobin 8.6 GM/DL (11.6-15.3) 8.0 GM/DL (11.6-15.3) Hematocrit 25.9 % (35.0-46.0) 24.5 % (35.0-46.0) Mean Corpuscular Hemoglobin 26.9 PG (27.0-34.0) 26.4 PG (27.0-34.0) Neutrophils (%) (Auto) 81.8 % (16.0-70.0) 73.8 % (16.0-70.0) Neutrophils # (Auto) 7.9 TH/MM3 (1.8-7.7) Blood Urea Nitrogen 29 MG/DL (7-18) 24 MG/DL (7-18) Creatinine 2.34 MG/DL (0.50-1.00) 1.91 MG/DL (0.50-1.00) Random Glucose 216 MG/DL (74-106) 157 MG/DL (74-106) Albumin 1.9 GM/DL (3.4-5.0) 1.8 GM/DL (3.4-5.0) Calcium Level 8.0 MG/DL (8.5-10.1) 7.8 MG/DL (8.5-10.1) Alkaline Phosphatase 332 U/L (45-117) Chloride Level 110 MEQ/L (98-107) 109 MEQ/L (98-107) Carbon Dioxide Level 18.8 MEQ/L (21.0-32.0) 17.9 MEQ/L (21.0-32.0) Estimat Glomerular Filtration Rate 23 ML/MIN (>89) 29 ML/MIN (>89) Monocytes (%) (Auto) 8.6 % (0.0-8.0) Imaging Last Impressions Renal Ultrasound 04/14/18 0000 Signed Impressions: CONCLUSION: 1. There is no evidence of hydronephrosis. 2. Slight increased echogenicity of the renal parenchyma bilaterally. Lung Scan-V Nuclear Medicine 04/14/18 0000 Signed Impressions: CONCLUSION: 1. Low probability of pulmonary embolism Chest X-Ray 04/14/18 0000 Signed Impressions: CONCLUSION: No acute cardiopulmonary process. Abdomen/Pelvis CT 04/14/18 0000 Signed Impressions: CONCLUSION: No evidence of acute abdominal or pelvic process. No masses are identified. Knee X-Ray 04/12/18 0023 Signed Impressions: CONCLUSION: Status post fyzhf-[id number] amputation without evidence of active bone loss or o bvious infection Lower Extremity MRI 04/12/18 0000 Signed Impressions: CONCLUSION: 1. Cellulitic changes of the soft tissues/stump but no osteomyelitis. 2. Cystic changes of the marrow of the distal femur of uncertain etiology. PE at Discharge GENERAL: This is a well-nourished, well-developed patient, in no apparent distress. CARDIOVASCULAR: Normal rate and regular rhythm without murmurs, gallops, or rubs. RESPIRATORY: Good respiratory efforts. Breath sounds equal and clear to auscultation bilaterally. GASTROINTESTINAL: Abdomen soft, non-tender, non-distended. Normal active bowel sounds MUSCULOSKELETAL: Status post right BKA. Stump is bandaged. NEURO: Alert & Oriented x4 to person, place, time, situation. Moves all ext x4 PSYCH: Appropriate mood and affect. Hospital Course Patient presented with sepsis on admission, leukocytosis, tachycardia, cellulitis of right BKA stump. Patient was treated with broad-spectrum antibiotics, developed acute kidney injury with creatinine up to 2.8. Nephrology was consulted, patient treated with IV fluids, discontinuation of SARAI inhibitor with improvement. Vascular surgery was consulted for right lower extremity amputation. Patient was also found to have a UTI. Infectious disease was consulted, and recommends continuation of p.o. antibiotics Keflex for 7 more days. Patient is to follow-up with wound care as outpatient. Patient is also to follow-up with nephrology as outpatient. For problem based summary from most recent progress note, please see below. //Cellulitis/infected right BKA stump. Infectious disease and vascular surgery consults appreciated. MRI negative for osteomyelitis. S/p debridement 04/14. - Vancomycin/Zosyn changed to ceftriaxone per sensitivities. - follow up with vascular and ID. - pain control with a bowel regimen. = Patient cleared for discharge by vascular with p.o. antibiotics. Discussed with infectious disease. Discharge home on Keflex. Follow-up with wound care as outpatient. //Diabetes mellitus Hemoglobin A1c of 9.3%. - Sliding-scale insulin. - Monitor blood glucose. - Levemir 15 units daily. = 04/16. With hyperglycemia in the 200s. Will increase sliding scale to moderate. Add diabetic diet = 04/17. Blood sugars improved on current regimen. //JOSE GUADALUPE Creatinine is increasing. Renal US negative for hydronephrosis. ? s/t antibiotics. - d/c vancomycin and Zosyn. - IVFs. - follow BMP. - calculate FENa. - nephrology consult. - avoid nephrotoxins. = Much improved. Hold off on SARAI inhibitor for now. Follow-up with nephrology as outpatient. //HTN Blood pressure fluctuates. - hold antihypertensives and monitor. Currently well controlled. //Anemia Unsure of baseline. Hemoccult positive. - follow CBC and transfuse as needed. - Pepcid. -Ferritin 204, low TIBC, likely anemia of inflammation versus chronic renal disease = He will remain 0.6. Relatively stable. Continue to monitor. //Diarrhea Concern for C diff. CT abdomen unremarkable. - C diff PCR negative = Improved. Likely secondary to antibiotics. //Abdominal pain/ back pain/ shortness of breath/ acute respiratory failure The pt had an episode of the above on 04/14. Possibly a reaction to Tramadol or Rocephin. CT abdomen unremarkable. V/Q scan low probability. Initially she required 5L NC, now on room air. Trop slightly elevated at 0.07. EKG with sinus tach. - d/c Tramadol. - monitor in ICU with next dose of Rocephin. Transfer to floor if stable. -Resolved. Patient says she snores at night, not used to sleeping on her back in the hospital. Suspect it was likely an exacerbation of sleep apnea Discharge Planning Discharge when cleared by ID and vascular surgery. Pt Condition on Discharge: Good Discharge Disposition: Disch w/ Home Health Serv Discharge Time: > 30 minutes Discharge Instructions DIET: Follow Instructions for: Diabetic Diet Activities you can perform: Non Weight Bearing Follow up Referrals: Nephrology - 2-3 Days with Dominic Ray MD PCP Follow-up - 1 Week [facility] same day appointments. Call the day you would like to be seen office opens at 8:00am. Provided patient with office address and telephone number. Vascular Surgery - 2 Weeks @ Vascular Surgery with Nathanael Jean-Baptiste MD Wound Care Clinic - 2-3 Days with [facility] New Medications: Cephalexin (Keflex) 500 Mg Cap 500 MG PO Q6H for Infection for 7 Days, #28 CAP 0 Refills Ondansetron Odt (Ondansetron Odt) 4 Mg Tab 4 MG SL Q6HR PRN for Nausea/Vomiting, #20 TAB 0 Refills Oxycodone-Acetaminophen (Oxycodone-Acetaminophen) 5-325 mg Tab 1 TAB PO Q4H PRN for PAIN, #20 TAB 0 Refills Sodium Bicarbonate (Sodium Bicarbonate) 325 Mg Tab 325 MG PO BIDPC for electrolyte for 30 Days, #60 TAB 0 Refills Wheelchair (Wheelchair) 1 Mis Mis EA .XX DIRECTED, #1 0 Refills Continued Medications: Amlodipine (Amlodipine) 10 Mg Tab 10 MG PO DAILY Atorvastatin (Atorvastatin) 80 Mg Tab 80 MG PO DAILY Insulin Aspart Inj (Novolog Inj) 1,000 Unit/10 Ml Vial 8 UNITS SQ AC LUNCH for Blood Sugar Management, #10 ML 0 Refills Insulin Aspart Inj (Novolog Inj) 1,000 Unit/10 Ml Vial 12 UNITS SQ AC BREAKFAST for Blood Sugar Management, #10 ML 0 Refills Insulin Aspart Inj (Novolog Inj) 1,000 Unit/10 Ml Vial 12 UNITS SQ AC DINNER for Blood Sugar Management, #10 ML 0 Refills Insulin Glargine Inj (Lantus Solostar Pen Inj) 300 Unit/3 Ml Pen 24 UNITS SQ AC BREAKFAST Discontinued Medications: Lisinopril (Lisinopril) 5 Mg Tab 1 TAB PO DAILY Shade Miranda MD Apr 17, 2018 11:15
--- NOTE | 2018-04-17 11:43 | HHI.FF ---
Face to Face Verification Diagnosis: (1) Amputation stump infection Physical Therapy Order: Evaluate and Treat Home Health Nursing Order: Wound care and dressing changes Instructions: Dry dressing changes and wound monitoring of right lower extremity BKA. Any changes in wound condition to be reported to [facility] wound care I have seen patient Kaylan Villalta on 04/17/18. My clinical findings support the need for the requested home health care services because: Limited ability to care for self I certify that my clinical findings support that this patient is homebound because: Unsafe to leave home unassisted Shade Miranda MD Apr 17, 2018 11:43
[2018-04-17 12:00] VITALS: BP 187/91; PULSE 78; RESP 18; TEMP 97.8; O2SAT 96
[2018-04-17] MEDS ORDERED: CEPHALEXIN MONOHYDRATE 500 MG CAP PO ONE (12:00)
--- NOTE | 2018-04-17 14:38 | PD.WCN.NOT ---
Wound Consult Description: Received wound care consult from Doctor Jean-Baptiste for wound management of R BKA Communicated with: Gianna KEARNEY for vascular surgery, Doctor Miranda, and RN Shanna [address] [place] [id number] Recommendation: Please soak wound surgical wound with 0.125% dakin's solution and dry before packing wound loosely with puracol AG and then with Maxorb II, cover wound with ABD pad, secured with rolled gauze and tape and tubi lottery clerk may leave in place for up to 1 week and change if saturated or dislodged, or until follow up with Doctor Douglas. Doctor Douglas can remove sutures to wound at that time. Patient has a follow up appointment with out patient wound center on 04/24/2018. Additional Information: Patient seen on [address] [place] [id number] for evaluation of wound management for R BKA surgical wound. Patient is s/p R stump I&D on 04/13/2018. Patient is laying in bed pending D/C home. Surgical wound to R BKA is noted open to air. Wound measures 1.3cm x 6.4cm x 1.3cm Wound not well approximated with 7 sutures. Wound appears to be dehiscing. Periwound is noted with erythema. Moderate amount of Howard colored drainage is noted without odor from wound bed. Wound tissue that is visible is ~60% red non granulation tissue and ~40% yellow/ brown tissue. Wound was cleansed with normal saline and patted dry. Patient is waiting to take a shower. Wound was left open to air at this time for showering.Spoke with Gianna Kearney for vascular surgery discussed wound VAC with dakin's soaks. Later spoke with Doctor Miranda and based on patient's home status and lifestyle decided the wound VAC would not be appropriate. Wound recommendations are noted above. Floridalma Campbell [facility] Apr 17, 2018 14:38
[2018-04-17] MEDS ORDERED: SODIUM HYPOCHLORITE 0.125% 500 ML BTL TOPICAL SCH (15:00)
--- NOTE | 2018-04-17 19:18 | HHI.PR ---
Addendum to Inpatient Note Addendum Reason: Additional Documentation Additional Information Case dw Dr.Duncan Baptiste for additional 10 days. Reviewed note yday Rx as cellulitis. Will sign off please call back if any change in clinical condition or questions. Ivelisse Narayan MD Apr 17, 2018 19:18
[2018-04-17] MEDS ORDERED: CEPHALEXIN MONOHYDRATE 500 MG CAP PO SCH (21:00)
== END 2018-04-17 20:00 | disposition home or self-care (01) | DRG 463 ==
LOC: NEPE 23:38 → NEDA 04-12 02:22 → HCIS 04-12 05:15 → HIME 04-14 14:20 → N07A 04-15 22:30
PROVIDERS: ADMIT Internal Medicine; ATTEND Internal Medicine
PROC: 0JBN0ZZ Excision of Right Lower Leg Subcutaneous Tissue and Fascia, Open Approach (ICD-10-PCS; principal; 2018-04-13 15:28)
DX: T87.43 Infection of amputation stump, right lower extremity (principal); A41.9 Sepsis, unspecified organism; J96.00 Acute respiratory failure, unspecified whether with hypoxia or hypercapnia; N17.9 Acute kidney failure, unspecified; L03.115 Cellulitis of right lower limb; E11.40 Type 2 diabetes mellitus with diabetic neuropathy, unspecified; E11.65 Type 2 diabetes mellitus with hyperglycemia; E87.2 Acidosis; N39.0 Urinary tract infection, site not specified; B95.61 Methicillin susceptible Staphylococcus aureus infection as the cause of diseases classified elsewhere; Z79.4 Long term (current) use of insulin; Z83.3 Family history of diabetes mellitus; B96.20 Unspecified Escherichia coli [E. coli] as the cause of diseases classified elsewhere; I10 Essential (primary) hypertension; D64.9 Anemia, unspecified; J44.9 Chronic obstructive pulmonary disease, unspecified; Y83.5 Amputation of limb(s) as the cause of abnormal reaction of the patient, or of later complication, without mention of misadventure at the time of the procedure; E78.5 Hyperlipidemia, unspecified; Z98.84 Bariatric surgery status; R19.7 Diarrhea, unspecified; M54.9 Dorsalgia, unspecified; E66.9 Obesity, unspecified; Z68.33 Body mass index [BMI] 33.0-33.9, adult; M14.672 Charcot's joint, left ankle and foot
CPT/HCPCS: 36600; 71045; 73564; 73720; 74176; 76775; 76937; 78582; 80048; 80053; 80069; 80202; 81001; 82010; 82272; 82550; 82570; 82607; 82728; 82746; 82800; 82805; 82948; 83036; 83540; 83550; 83605; 83690; 83735; 83880; 84100; 84156; 84300; 84484; 84703; 85025; 85027; 85610; 85652; 85730; 86140; 86403; 87040; 87070; 87077; 87086; 87147; 87186; 87205; 87493; 93005; 94150; 94640; 94664; 96365; 99285; A9540; A9567; A9579; J0696; J1200; J1815; J2060; J2270; J2370; J2405; J2543; J2765; J2930; J3010; J3370; J3590; J7030; J7040; Q9963